=== PATIENT | male | born 1940 | race Caucasian/White ===

== ENCOUNTER 2016-12-29 12:04 | Inpatient (IN) | payer OTHER ==
[~2016-12-29] VITALS: Ht 177.8 cm; Wt 99.8 kg
--- NOTE | 2016-12-29 12:13 | NUR ---
RECIEVED TO ROOM 19. HAL RIVERO AT BEDSIDE TRIAGING PT. PT ON MONITOR
--- NOTE | 2016-12-29 12:15 | NUR ---
PT SENT TO ED BY PRIMARY CARE PROVIDER IN COLLABORATION WITH DR. SCALES FOR R/O HEART BLOCK PT'S HEART RATE WAS LOW IN THE OFFICE THIS MORNING AND HE WAS SENT IN. PT OFFERS NO COMPLAINTS EXCEPT OCCASIONAL SOB. DOES HAVE BACK PAIN, NECK PAIN AND GROIN PAIN OVER THE LAST COUPLE OF DAYS. NORMAL COLORING NOTED. PT BROUGHT IMMEDIATELY TO ROOM 19.
[2016-12-29] MEDS ORDERED: AMLODIPINE BESYL5 M1 PO (12:26)
[2016-12-29] MEDS ORDERED: ASPIRIN81 M4 PO (12:26)
--- NOTE | 2016-12-29 12:26 | NUR ---
PT IN SECOND DEGREE HEART BLOCK WITH RATE LOW 36 AND UP TO 60. PT ASYMPTOMATIC WITH THIS RATE. EXTERNAL PACEMAKER AT BEDSIDE AND READY FOR USE IF NEEDED. AT BEDSIDE. 20 GUAGE IV PLACED IN RAC BY MELODY RIVERO. LABS DRAWN
[2016-12-29] MEDS ORDERED: [UNRECOGNIZED DRUG - OTHER] PO (12:27)
[2016-12-29] MEDS ORDERED: CO Q-10100 MG PO (12:28)
[2016-12-29] MEDS ORDERED: VITAMIN D35000 UNI1 PO (12:28)
--- NOTE | 2016-12-29 12:31 | ED CARDIAC/CP/PALPITATIONS ---
History of Present Illness General Chief Complaint: ??heart block Stated Complaint: SENT BY ; SLOW HEART RATE Source: patient Exam Limitations: no limitations Vital Signs & Intake/Output Vital Signs & Intake/Output Vital Signs Date Time Temp Pulse Resp B/P B/P Pulse O2 O2 Flow FiO2 Mean Ox Delivery Rate 12/29 2116 98.0 40 20 130/64 96 Room Air 12/30 2007 96.8 32 18 130/70 96 Room Air 12/29 1714 36 18 109/54 94 Room Air 12/29 1658 98.3 35 18 120/58 97 Room Air 12/29 1423 37.0 40 18 136/70 97 Room Air 12/29 1247 Room Air 12/29 1213 37 20 161/70 96 Room Air Room Air Allergies Coded Allergies: No Known Allergies (12/29/16) Triage Note: PT SENT TO ED BY PRIMARY CARE PROVIDER IN COLLABORATION WITH DR. ROWLAND FOR R/O HEART BLOCK PT'S HEART RATE WAS LOW IN THE OFFICE THIS MORNING AND HE WAS SENT IN. PT OFFERS NO COMPLAINTS EXCEPT OCCASIONAL SOB. DOES HAVE BACK PAIN, NECK PAIN AND GROIN PAIN OVER THE LAST COUPLE OF DAYS. NORMAL COLORING NOTED. PT BROUGHT IMMEDIATELY TO ROOM 19. Triage Nurses Notes Reviewed? yes HPI: patient is a 76 YO M with pmh of prostate cancer, HTN came to the ER after being sent by for concern of heart block in the setting of asymptomatic bradycardia. Apparently patient underwent a skin biopsy 3 weeks ago (12/03/2016) , by Dr. Morales. After biopsy took a course of cephalexin. His results came back showing taken his skin biopsy. He was asked to come to office today for follow-up of his results, he was found to be asymptomatically bradycardic. Hazel Figueredo MD communicated with Dr. Rowland his actuarial science teacher, sent to ER as per his recommendation. After coming to the ER he is completely asymptomatic, denies any dizziness/lightheadedness/syncope episodes. He reports significant fatigue for the past few days, back pain, neck pain, right hip pain without any fevers/chills. He also found to have occasional exertional dyspnea with lightheadedness for the past 3 months. He snores, feels sleppy during day time. Quit smoking 40 years ago, denies any alcohol/drugs Surgical history significant for right inguinal hernial repair, multiple orthopedic surgeries to right forearm. (KASSI SHEFFIELD MD) Reconcile Medications Amlodipine Besylate 5 MG TABLET 1 TAB PO DAILY HEART (Reported) Aspirin (Aspirin*) 81 MG TAB.CHEW 1 TAB PO DAILY HEART HEALTH (Reported) Cholecalciferol (Vitamin D3) (Vitamin D3) 5,000 UNIT TABLET 1 TAB PO DAILY VITAMIN SUPPORT (Reported) [CHOLESTAFF] 900 MG TAB 1 TAB PO DAILY CHOLESTEROL (Reported) Ubidecarenone (Co Q-10) 100 MG CAPSULE 1 CAP PO QPM SUPPLEMENT (Reported) (JACK NGO MD) Past History Travel History Traveled to [place] past 21 day No Medical History Any Pertinent Medical History? 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 Yes (KASSI SHEFFIELD MD) Review of Systems Review of Systems Constitutional: Reports: see HPI, malaise. EENTM: Reports: no symptoms. Respiratory: Reports: no symptoms. Cardiovascular: Reports: no symptoms. GI: Reports: no symptoms. Genitourinary: Reports: no symptoms. Musculoskeletal: Reports: no symptoms. (KASSI SHEFFIELD MD) Physical Exam Physical Exam General Appearance: well developed/nourished, alert, awake, anxious Head: atraumatic, normal appearance Eyes: Bilateral: normal appearance, PERRL, EOMI. Ears, Nose, Throat: normal pharynx Neck: normal inspection, supple Respiratory: normal breath sounds, chest non-tender Cardiovascular: bradycardic, s1, s2 normal Gastrointestinal: normal bowel sounds, non-tender, distention Skin: intact, normal color, NO rash, mojica hemangiomas through out Core Measures ACS in differential dx? No Severe Sepsis Present: No Septic Shock Present: No (KASSI SHEFFIELD MD) Progress Differential Diagnosis: heart block, bradycardia, Lyme carditis Plan of Care: Orders Procedure Date/time Status CBC WITHOUT DIFFERENTIAL 06/13 0600 Active BASIC ELECTROLYTES PLUS BUN&CR 12/30 0600 Active Heart Healthy Diet 12/29 D Active EKG 12/30 1999 Active Pathway - chart 12/29 1547 Active House Staff 12/29 1547 Active Patient Data 12/29 1547 Active ED Holding Orders 12/29 1455 Active Admit to inpatient 12/29 1455 Active Vital Signs 12/29 1455 Active Code Status 12/29 1455 Active Patient Data 12/29 1430 Active Add-on Test (ER Only) 12/29 1347 Active Intake & Output 12/29 1247 Active BLOOD CULTURE 12/29 1238 Active MISTAKE 12/29 1225 Active TROPONIN LEVEL 12/29 1225 Complete Add-on Test (ER Only) 12/29 1220 Active Telemetry/Sheep Or Calf Grader 12/29 1219 Active PARTIAL THROMBOPLASTIN TIME 12/29 1219 Complete PROTHROMBIN TIME 12/29 1219 Complete LYME TITRE 12/29 1219 Active COMPREHENSIVE METABOLIC PANEL 12/29 1219 Complete CBC WITHOUT DIFFERENTIAL 12/29 1219 Complete TYPE & SCREEN (NOT X-MATCH) 12/29 1219 Complete EKG 12/29 1205 Active VTE Mechanical Prophylaxis 12/29 UNK Active Telemetry/Sheep Or Calf Grader 12/29 UNK Active Current Medications Sig/Primo Start time Last Medication Dose Stop Time Status Admin Aspirin 81 MG DAILY 12/30 1000 AC (Aspirin) Enoxaparin Sodium 40 MG DAILY 12/30 1000 AC (Lovenox) Ceftriaxone Sodium 2,000 MG DAILY@1600 12/29 1600 AC 12/29 (Rocephin) 1633 Acetaminophen 650 MG Q6P PRN 12/29 1545 AC (Tylenol) Acetaminophen 1,000 MG Q6P PRN 12/29 1545 AC (Ofirmev) Morphine Sulfate 1 MG Q4P PRN 12/29 1545 AC (Morphine) Laboratory Tests 12/29/16 1547: Sodium Cancelled, Potassium Cancelled, Chloride Cancelled, Carbon Dioxide Cancelled, Anion Gap Cancelled, BUN Cancelled, Creatinine Cancelled, BUN/ Creatinine Ratio Cancelled, CBC w Diff Cancelled, WBC Cancelled, RBC Cancelled, Hgb Cancelled, Hct Cancelled, MCV Cancelled, MCH Cancelled, RDW Cancelled, Plt Count Cancelled, MPV Cancelled, PUBS MCHC Cancelled 12/29/16 1225: Anion Gap 12, Estimated GFR > 60, BUN/Creatinine Ratio 14.5, Glucose 97, Calcium 9.8, Total Bilirubin 1.0, AST 35, ALT 54, Alkaline Phosphatase 105, Troponin I < 0.01, Total Protein 7.8, Albumin 4.4, Globulin 3.4, Albumin/Globulin Ratio 1.3, PT 11.6, INR 1.11, APTT 34, CBC w Diff NO MAN DIFF REQ, RBC 4.25 L, MCV 90.9, MCH 30.8, RDW 14.0, MPV 7.8, Gran % 61.7, Lymphocytes % 24.4, Monocytes % 9.6 H , Eosinophils % 3.6, Basophils % 0.7, Absolute Granulocytes 4.1, Absolute Lymphocytes 1.6, Absolute Monocytes 0.6, Absolute Eosinophils 0.2, Absolute Basophils 0, PUBS MCHC 33.8, Lyme Disease Antibody Pending Microbiology 12/29 1300 BLOOD: Blood Culture - RECD 12/29 1247 BLOOD: Blood Culture - RECD CXR Impression: no acute abnormality Initial ED EKG: HR 37, NC 268, first degree heart block, Anterior Q waves V1, V2 , QTc 471. Rhythm Strip: sinus bradycardia Hand-Off Endorsed To: JACK NGO MD (KASSI SHEFFIELD MD) Departure Departure Condition: Stable Referrals: JAMAL FIGUEREDO MD (PCP/Family) Departure Forms: Customer Survey General Discharge Information Admission Note Spoke With: JOSE DANIEL CORTEZ,CHARY Chao Documentation of Exam: Documentation of any treatments & extenuating circumstances including Concerns Regarding Discharge (functional status, medication knowledge or non-compliance, living conditions, etc.) that warrant an admission rather than observation: [ Telemetry monitoring, asymtomatic bradycardia with occasinal drop down to 30's with 2:1 Heart block] (KASSI SHEFFIELD MD) Departure Disposition: STILL A PATIENT Clinical Impression Primary Impression: Lyme carditis Secondary Impressions: Bradycardia, Lyme disease Admission Note Documentation of Exam: Documentation of any treatments & extenuating circumstances including Concerns Regarding Discharge (functional status, medication knowledge or non-compliance, living conditions, etc.) that warrant an admission rather than observation: [ WILL REQUIRE CARDIOLOGY CONSULTATION, INFECTIOUS DISEASE CONSULTATION, IV ABX, PACER PADS, NO INDICATION FO RPACING AT THIS TIME PATIENT IS MINIMALISTIC SYMPTOMATIC] PA/DEPUTY SHERIFF CHIEF Co-Sign Statement Statement: ED Attending supervision documentation- [] I saw and evaluated the patient. I have also reviewed all the pertinent lab results and diagnostic results. I agree with the findings and the plan of care as documented in the PA's/DEPUTY SHERIFF CHIEF's documentation. [] I have reviewed the ED Record and agree with the PA's/DEPUTY SHERIFF CHIEF's documentation. [] Additions or exceptions (if any) to the PAs/DEPUTY SHERIFF CHIEF's note and plan are summarized below: [] Resident Co-Sign Statement Statement: ED Attending supervision documentation- [X] I saw and evaluated the patient. I have also reviewed all the pertinent lab results and diagnostic results. I agree with the findings and the plan of care as documented in the Resident's documentation. [X] I have reviewed the ED Record and agree with the Resident's documentation. [] Additions or exceptions (if any) to the Resident's note and plan are summarized below: [] (JENI CORTEZ,JACK) Critical Care Note Critical Care Note Critical Care Time: non-applicable (NETTIE CORTEZ,KASSI)
--- NOTE | 2016-12-29 12:35 | NUR ---
DR NGO IN TO SEE PT
--- NOTE | 2016-12-29 12:45 | NUR ---
PT WITH VARIABLE HEART RHYTHM. PT GOES BACK AND FORTH BETWEEN NSR, SINUS KATHERINE AND SECOND DEGREE TYPE 2 HEART BLOCK
--- NOTE | 2016-12-29 12:46 | RADIOLOGY REPORT ---
EXAMINATION: XR PORTABLE CHEST CLINICAL INFORMATION: Bradycardia COMPARISON: 04/06/2015 TECHNIQUE: Portable frontal view of the chest was obtained. FINDINGS: No focal consolidation, pulmonary edema, or pleural effusion. Stable cardiomediastinal silhouette. IMPRESSION: No acute cardiopulmonary findings.
--- NOTE | 2016-12-29 12:46 | NUR ---
TWO SETS OF BLOOD CULTURES BEING DRAWN
[2016-12-29 12:48] LABS: ABSOLUTE BASOPHIL COUNT 0 /CUMM (0.0-0.2); ABSOLUTE EOSINOPHIL COUNT 0.2 /CUMM (0.0-0.7); ABSOLUTE GRANULOCYTE CT 4.1 /CUMM (1.4-6.5); ABSOLUTE LYMPH COUNT 1.6 /CUMM (1.2-3.4); ABSOLUTE MONOCYTE COUNT 0.6 /CUMM (0.10-0.60); BASOPHIL % 0.7 % (0.0-2.0); EOSINOPHIL % 3.6 % (0-5); GRANULOCYTE % 61.7 % (42.2-75.2); HEMATOCRIT 38.7 % (42-52); MEAN CORPUSCULAR HGB 30.8 PG (27.0-31.0); MEAN CORPUSCULAR HGB CONC 33.8 G/DL (33.0-37.0); MEAN CORPUSCULAR VOLUME 90.9 FL (80.0-94.0); MEAN PLATELET VOLUME 7.8 FL (7.4-10.4); PLATELET COUNT 202 /CUMM (130-400); RED BLOOD CELL CT 4.25 /CUMM (4.70-6.10); WHITE BLOOD CELL COUNT 6.6 /CUMM (4.8-10.8)
[2016-12-29 13:09] LABS: PT 11.6 SEC (9.4-12.5); PTT 34 SEC (25-37)
--- NOTE | 2016-12-29 14:24 | NUR ---
PT RECIEVING VIBRAMYSIN. ORTHOSTATIC BLOOD PRESSURES TAKEN. PT DENIES DIZZINESS WHEN UP. SKIN WARM AND DRY
--- NOTE | 2016-12-29 14:45 | History & Physical ---
SUBHASH THOMPSON MD 12/29/16 1445: General Information and HPI MD Statement: I have seen and personally examined ANASTACIA RECIO and documented this H&P. The patient is a 76 year old M who presented with a patient stated chief complaint of []. Source of Information: patient, family Exam Limitations: no limitations History of Present Illness: Patient is a 76-year-old man with significant past medical history of prostate cancer s/p surgery, radiotherapy, hypertension, sent by urologist to [facility] as found to have bradycardia. According to the patient, since last 1 month he had episodes of fatigue, generalized weakness for which he usually take nape and recovers after it. He was also having history of skin tag at the site of scrotal lesion for which biopsy was done and which showed fragments of tick. Today when he went to follow -up with Dr. Morales, he found to have bradycardia. Dr. Morales discussed with Dr. Francisco over the phone and advised for the patient to follow-up in [facility] ED for further evaluation. EKG was done over here which showed prolonged CA and first-degree block. Discussed with Dr Vila and he advised for starting patient on IV antibiotic. Patient denies of any chest pain, shortness of breath, dizziness, fall., Fever, chills. He also claims that he started having pain on the right hip since couple of days. Personal history -denies smoking, alcohol, recent travel. Allergies/Medications Allergies: Coded Allergies: No Known Allergies (12/29/16) Home Med list Amlodipine Besylate 5 MG TABLET 1 TAB PO DAILY HEART (Reported) Aspirin (Aspirin*) 81 MG TAB.CHEW 1 TAB PO DAILY HEART HEALTH (Reported) Cholecalciferol (Vitamin D3) (Vitamin D3) 5,000 UNIT TABLET 1 TAB PO DAILY VITAMIN SUPPORT (Reported) [CHOLESTAFF] 900 MG TAB 1 TAB PO DAILY CHOLESTEROL (Reported) Ubidecarenone (Co Q-10) 100 MG CAPSULE 1 CAP PO QPM SUPPLEMENT (Reported) Past History Travel History Traveled to [place] past 21 day No Medical History Neurological: NONE EENT: NONE Cardiovascular: hyperlipidemia, htn Respiratory: NONE Gastrointestinal: NONE Hepatic: NONE Renal: NONE Musculoskeletal: NONE Psychiatric: anxiety Endocrine: NONE Blood Disorders: NONE 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 Cardiovascular: Denies: chest pain. Respiratory: Denies: cough, short of breath. Musculoskeletal: Reports: back pain, neck pain. Skin: Denies: no symptoms. Neurological/Psychological: Denies: no symptoms. Exam & Diagnostic Data Last 24 Hrs of Vital Signs/I&O Vital Signs Date Time Temp Pulse Resp B/P B/P Pulse O2 O2 Flow FiO2 Mean Ox Delivery Rate 12/30 2007 96.8 32 18 130/70 96 Room Air 12/29 1714 36 18 109/54 94 Room Air 12/29 1658 98.3 35 18 120/58 97 Room Air 12/29 1423 37.0 40 18 136/70 97 Room Air 12/29 1247 Room Air 12/29 1213 37 20 161/70 96 Room Air Room Air Intake & Output 12/29 1600 12/29 0800 12/29 0000 Intake Total Output Total Balance Patient 99.79 kg Weight Weight Reported by Patient Measurement Method Physical Exam General Appearance Alert, Oriented X3, Cooperative, No Acute Distress Cardiovascular Normal S1, Normal S2 Lungs Clear to Auscultation, Normal Air Movement Abdomen Soft, No Tenderness Neurological Normal Speech Extremities No Clubbing, No Cyanosis, No Edema Vascular Normal Pulses, Pulses Symmetrical Reproductive (MALE) Normal male genitalia Last 24 Hrs of Labs/Aubrey: Laboratory Tests 12/29/16 1547: Sodium Cancelled, Potassium Cancelled, Chloride Cancelled, Carbon Dioxide Cancelled, Anion Gap Cancelled, BUN Cancelled, Creatinine Cancelled, BUN/ Creatinine Ratio Cancelled, CBC w Diff Cancelled, WBC Cancelled, RBC Cancelled, Hgb Cancelled, Hct Cancelled, MCV Cancelled, MCH Cancelled, RDW Cancelled, Plt Count Cancelled, MPV Cancelled, PUBS MCHC Cancelled 12/29/16 1225: Anion Gap 12, Estimated GFR > 60, BUN/Creatinine Ratio 14.5, Glucose 97, Calcium 9.8, Total Bilirubin 1.0, AST 35, ALT 54, Alkaline Phosphatase 105, Troponin I < 0.01, Total Protein 7.8, Albumin 4.4, Globulin 3.4, Albumin/Globulin Ratio 1.3, PT 11.6, INR 1.11, APTT 34, CBC w Diff NO MAN DIFF REQ, RBC 4.25 L, MCV 90.9, MCH 30.8, RDW 14.0, MPV 7.8, Gran % 61.7, Lymphocytes % 24.4, Monocytes % 9.6 H , Eosinophils % 3.6, Basophils % 0.7, Absolute Granulocytes 4.1, Absolute Lymphocytes 1.6, Absolute Monocytes 0.6, Absolute Eosinophils 0.2, Absolute Basophils 0, PUBS MCHC 33.8, Lyme Disease Antibody Pending Microbiology 12/29 1300 BLOOD: Blood Culture - RECD 12/29 1247 BLOOD: Blood Culture - RECD Diagnostic Data EKG Results Sinus bradycardia, first-degree heart block, prolonged CA interval, 1:1 block Assessment/Plan Assessment: Patient is a 76-year-old man with significant past medical history of prostate cancer s/p surgery, radiotherapy, hypertension, sent by urologist to [facility] as found to have bradycardia. Vital signs at the time of admission-temperature 98.3, pulse 37, respiratory rate 20, blood pressure 161/70, SPO2 96% on room air Pertinent labs - hemoglobin 13.1, Assessment and plan - Patient presented with the history of episodes of fatigue, generalized weakness and found to have fragments of tick, in skin tags. It seems that it can be related. Possible bradycardia secondary to tick bite. Although he denies of any episodes of skin rashes, joint pain. First-degree heart block secondary to tick - * We will admit the patient to telemetry floor * We will mesure Lyme titer * Discussed with Dr. Vila will start patient on injection ceftriaxone 2 grams IV OD, followed by tablet doxycycline 100 milligrams twice a day for 2-3 weeks * We'll keep atropine/pacer pads at the bedside. * We will follow ID recommendations * We will place a cardiology consult and followed the recommendation * Vitals every shift * We will repeat EKG in the morning Hypertension * We will hold amlodipine for a while. Diet-heart healthy diet DVT prophylaxis-ALP/heparin CODE STATUS - Full Code As Ranked By This Provider Problem List: 1. Bradycardia 2. Lyme disease 3. Hypertension Core Measures/Miscellaneous Acute Coronary Syndrome ACS Diagnosis: No Cerebrovascular Accident CVA/TIA Diagnosis: No Congestive Heart Failure CHF Diagnosis: No VTE (View Protocol) VTE Risk Factors: Age > 40 [facility] d/t: No contraindications No VTE Pharm Prophylaxis d/t: No contraindications VTE Diagnosis: No VTE Type: NONE VTE Confirmed by (Test): NONE Sepsis (View Protocol) Severe Sepsis Present: No Septic Shock Septic Shock Present: No Miscellaneous Documentation Attending Case Discussed With: JOSE DANIEL CORTEZ,CHARY Chao Primary Care Physician: JAMAL FIGUEREDO MD Patient sees these Specialists Dr. Morales Level of Patient Care: Telemetry RENA GALVEZ 12/29/16 1636: Resident Review Statement Resident Statement: examined this patient, discussed with general internist, agreed with general internist Other Findings: Patient is a 76-year-old gentleman with a past medical history significant for hypertension, prostate cancer status post removal and radio ablation by his neurologist Dr. Morales was sent in by his primary care physician with concerns of bradycardia. Patient mentioned that he developed skin tag in the scrotal region that was resected at Dr. Morales's office about 3-4 weeks ago, biopsy was done that showed tissue fragments with possibility of attached organism with features consistent with a tick. Dr. Morales informed the patient with the results as per recommendations he was seen at his primary care physician's office today. His office he was found to be in bradycardia although totally asymptomatic EKG was done, and was faxed in to Dr. 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 In the ER patient denied any chest discomfort or breathing or any palpitations. Denied any dizziness or lightheadedness. He did report some nonspecific neck and back, and right-sided hip pain for the last couple of days without any evidence of joint involvement/rash. Denies any fever or chills. Initial vitals in the ED showed Pulse 37 with a blood pressure 161/70, normal temperature his rate 20 saturating more than 92% on room air General Appearance: Alert, No Acute Distress Skin: Grossly normal HEENT: PEERLA Neck: Supple, No JVD Cardiovascular: Irregularly irregular rate and rhythm, No Murmurs Lungs: Clear to Auscultation, Normal Air Movement Abdomen: Normal Bowel Sounds, Soft, No Tenderness Neurological: Normal Speech, Strength at 5/5 X4 Ext, Cranial Nerves 3-12 NL, Reflexes 2+ Extremities: No edema in the lower activities. Vascular: Normal Pulses . Pertinent labs on admission: H&H is stable, normal BEP Chest x-ray did not show any evidence of cardiopulmonary disease EKG done in the ED showed sinus bradycardia ,heart rate in 30s with Mobitz type II second-degree AV block , CA prolonged 268. Assessment : This this is a 76-year-old admitted with asignificant past medical history except for hypertension presented to the ED for the evaluation of asymptomatic bradycardia and Mobitz type II second-degree A-V heart block with concerns of Lyme's disease(evidence of tick in the recent skin biopsy). Asymptomatic bradycardia with with Mobitz type II second-degree AV block, probably in the setting of Lyme's disease * We'll admit the patient to telemetry floor * Lyme's titer have been sent in. * She already received 1 time dose of IV doxycycline in the ED. ID consult with Dr. Vila has been obtained as per recommendations we'll start the patient on IV ceftriaxone 2 g daily now. * We repeat EKG in the evening. * Cardiology consult with Madi Fitzgerald MD has been obtained we'll follow the recommendations. * Order echocardiogram * Hold Norvasc for now continue with aspirin from tomorrow. * Will change the antibiotic to doxycycline and by mouth 200 mg twice a day on discharge for a total of 2-3 weeks. History of hypertension * Continue aspirin and hold Norvasc for now. DVT prophylaxis with subcutaneous Lovenox Mild to moderate pain controlled with Tylenol Patient is full code
--- NOTE | 2016-12-29 15:34 | Cons- Infect Disease ---
General Information and HPI Consulting Request Date of Consult: 12/29/16 Requested By: Dr. Jasso Reason for Consult: Rule out Lyme carditis Source of Information: patient, family History of Present Illness: This is a 76-year-old man with a history of hypertension and prostate cancer, status post removal by his urologist of what he felt was a skin tag from his scrotum several weeks prior to admission, with the biopsy revealing evidence of a tick and referred to his primary care physician this morning who referred him to the emergency room because of bradycardia. He reports no lightheadedness, shortness of breath or chest pain. He does note neck pain, back pain and right hip pain over the last several days but has had no fevers or chills and has not noted any rash. On arrival in the emergency room he was found to be afebrile and bradycardic, with his heart rate down to 36. He has been given a dose of IV Doxycycline. Allergies/Medications Allergies: Coded Allergies: No Known Allergies (12/29/16) Home Med List: Amlodipine Besylate 5 MG TABLET 1 TAB PO DAILY HEART (Reported) Aspirin (Aspirin*) 81 MG TAB.CHEW 1 TAB PO DAILY HEART HEALTH (Reported) Cholecalciferol (Vitamin D3) (Vitamin D3) 5,000 UNIT TABLET 1 TAB PO DAILY VITAMIN SUPPORT (Reported) [CHOLESTAFF] 900 MG TAB 1 TAB PO DAILY CHOLESTEROL (Reported) Ubidecarenone (Co Q-10) 100 MG CAPSULE 1 CAP PO QPM SUPPLEMENT (Reported) Past History Travel History Traveled to [place] past 21 day No Medical History Neurological: NONE EENT: NONE Cardiovascular: hyperlipidemia, htn Respiratory: NONE Gastrointestinal: NONE Hepatic: NONE Renal: NONE Musculoskeletal: NONE Psychiatric: anxiety Endocrine: NONE Blood Disorders: NONE Cancer(s): prostate cancer (s/p radiation implant) 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 Surgical History Surgical History: none Review of Systems Review of Systems All Other Systems: Reviewed and Negative Exam & Diagnostic Data Last 24 Hrs of Vital Signs/I&O Vital Signs Date Time Temp Pulse Resp B/P B/P Pulse O2 O2 Flow FiO2 Mean Ox Delivery Rate 12/29 1423 37.0 40 18 136/70 97 Room Air 12/29 1247 Room Air 12/29 1213 37 20 161/70 96 Room Air Room Air Intake & Output 12/29 1600 12/29 0800 12/29 0000 Intake Total Output Total Balance Patient 220 lb Weight Weight Reported by Patient Measurement Method Physical Exam Other Physical Findings: He is awake and alert in no acute distress. He is afebrile. He is bradycardic with a heart rate down to 37. Blood pressure 161/70. Skin reveals no rash. HEENT exam is negative. Neck is supple with no adenopathy. Lungs are clear. Heart regular rhythm with no murmur. Abdomen is soft, nontender with positive bowel sounds. Back no CVA tenderness. Extremities no cyanosis, clubbing or edema; no joint inflammation. Neuro is without focality. Last 24 Hours of Lab Results: Laboratory Tests 12/29 1225 Chemistry Sodium (137 - 145 mmol/L) 137 Potassium (3.5 - 5.1 mmol/L) 4.6 Chloride (98 - 107 mmol/L) 103 Carbon Dioxide (22 - 30 mmol/L) 22 Anion Gap (5 - 16) 12 BUN (9 - 20 mg/dL) 16 Creatinine (0.7 - 1.2 mg/dL) 1.1 Estimated GFR (>60 ml/min) > 60 BUN/Creatinine Ratio (7 - 25 %) 14.5 Glucose (65 - 99 mg/dL) 97 Calcium (8.4 - 10.2 mg/dL) 9.8 Total Bilirubin (0.2 - 1.3 mg/dL) 1.0 AST (17 - 59 U/L) 35 ALT (21 - 72 U/L) 54 Alkaline Phosphatase (< 127 U/L) 105 Troponin I (<0.11 ng/ml) < 0.01 Total Protein (6.3 - 8.2 g/dL) 7.8 Albumin (3.5 - 5.0 g/dL) 4.4 Globulin (1.9 - 4.2 gm/dL) 3.4 Albumin/Globulin Ratio (1.1 - 2.2 %) 1.3 Coagulation PT (9.4 - 12.5 SEC) 11.6 INR (0.90 - 1.17) 1.11 APTT (25 - 37 SEC) 34 Hematology CBC w Diff NO MAN DIFF REQ WBC (4.8 - 10.8 /CUMM) 6.6 RBC (4.70 - 6.10 /CUMM) 4.25 L Hgb (14.0 - 18.0 G/DL) 13.1 L Hct (42 - 52 %) 38.7 L MCV (80.0 - 94.0 FL) 90.9 MCH (27.0 - 31.0 PG) 30.8 RDW (11.5 - 14.5 %) 14.0 Plt Count (130 - 400 /CUMM) 202 MPV (7.4 - 10.4 FL) 7.8 Gran % (42.2 - 75.2 %) 61.7 Lymphocytes % (20.5 - 51.1 %) 24.4 Monocytes % (1.7 - 9.3 %) 9.6 H Eosinophils % (0 - 5 %) 3.6 Basophils % (0.0 - 2.0 %) 0.7 Absolute Granulocytes (1.4 - 6.5 /CUMM) 4.1 Absolute Lymphocytes (1.2 - 3.4 /CUMM) 1.6 Absolute Monocytes (0.10 - 0.60 /CUMM) 0.6 Absolute Eosinophils (0.0 - 0.7 /CUMM) 0.2 Absolute Basophils (0.0 - 0.2 /CUMM) 0 PUBS MCHC (33.0 - 37.0 G/DL) 33.8 Serology Lyme Disease Antibody Pending Last 24 Hours of Aubrey Results: Blood cultures 2 December 29 pending Diagnostic Data Recent Imaging Findings: Chest x-ray negative EKG reveals bradycardia with a first-degree heart block with a ME interval of 0.268 Assessment/Plan Assessment/Plan Impression: This is a 76-year-old man with history of prostate cancer and hypertension status post removal of what he felt was a skin tag several weeks prior to admission, with a biopsy revealing evidence of a tick, admitted today after he was found to be bradycardic at his physician's office with no lightheadedness, chest pain or shortness of breath but with several days of arthralgias. 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 Treatment requires a 2-3 week course of antibiotics, typically Doxycycline for lower degrees of heart block and Ceftriaxone for higher degrees. As he is being admitted and the heart block can fluctuate it is reasonable to treat with Ceftriaxone while he is hospitalized. Suggestion: 1. Await Lyme titer 2. Await Cardiology evaluation 3. Begin Ceftriaxone 2 g IV every 24 hours, with eventual change to Doxycycline 100 mg po every 12 hours when stable for discharge to complete a 2-3 week course of treatment Consult Acknowledgment - Thank you for your consult request.
--- NOTE | 2016-12-29 16:15 | NUR ---
HOSPITAL MD TEAM IN TO SEE PT
--- NOTE | 2016-12-29 16:57 | NUR ---
PT GIVEN ROCEPHIN. PT ATE DINNER. REMAINS ALERT AND ORIENTED. IN NO OVERT DISTRESS. SKIN WARM AND DRY. HEART RATE 36. SECOND DEGREE TYPE 2 BLOCK
--- NOTE | 2016-12-29 17:12 | Admission Certification ---
Admission Certification Certification Statement - As attending physician, I certify that at the time of - admission, based on clinical presentation, severity of - symptoms, need for further diagnostic testing and - therapeutic interventions, and risk of adverse outcomes - without in-hospital treatment, in my clinical assessment, - this patient requires an acute hospital stay for a minimum - of two nights or longer. I have also considered psychsocial - factors such as support system, advanced age, financial - issues, cognitive issues, and failed out-patient treatments, - past re-admission history, safety of patient, and lack of - compliance as applicable. Specific rationale supporting this admission is: heart block with bradycardia
--- NOTE | 2016-12-29 17:21 | PN- Att Addend ---
Attending MD Review Statement Attending Statement Attending MD Statement: examined this patient, discuss w/resident/PA/ARMAMENT MECHANIC, agreed w/resident/PA/ARMAMENT MECHANIC, reviewed EMR data (avail), discussed w/nursing Attending Assessment/Plan: Laboratory Tests 12/29/16 1547: Sodium Cancelled, Potassium Cancelled, Chloride Cancelled, Carbon Dioxide Cancelled, Anion Gap Cancelled, BUN Cancelled, Creatinine Cancelled, BUN/ Creatinine Ratio Cancelled, CBC w Diff Cancelled, WBC Cancelled, RBC Cancelled, Hgb Cancelled, Hct Cancelled, MCV Cancelled, MCH Cancelled, RDW Cancelled, Plt Count Cancelled, MPV Cancelled, PUBS MCHC Cancelled 12/29/16 1225: Anion Gap 12, Estimated GFR > 60, BUN/Creatinine Ratio 14.5, Glucose 97, Calcium 9.8, Total Bilirubin 1.0, AST 35, ALT 54, Alkaline Phosphatase 105, Troponin I < 0.01, Total Protein 7.8, Albumin 4.4, Globulin 3.4, Albumin/Globulin Ratio 1.3, PT 11.6, INR 1.11, APTT 34, CBC w Diff NO MAN DIFF REQ, RBC 4.25 L, MCV 90.9, MCH 30.8, RDW 14.0, MPV 7.8, Gran % 61.7, Lymphocytes % 24.4, Monocytes % 9.6 H , Eosinophils % 3.6, Basophils % 0.7, Absolute Granulocytes 4.1, Absolute Lymphocytes 1.6, Absolute Monocytes 0.6, Absolute Eosinophils 0.2, Absolute Basophils 0, PUBS MCHC 33.8, Lyme Disease Antibody Pending Vital Signs Date Time Temp Pulse Resp B/P B/P Pulse O2 O2 Flow FiO2 Mean Ox Delivery Rate 12/29 1658 98.3 35 18 120/58 97 Room Air 12/29 1423 37.0 40 18 136/70 97 Room Air 12/29 1247 Room Air 12/29 1213 37 20 161/70 96 Room Air Room Air 76 yr old male admitted with bradycardia and recent biopsy from scrotal skin tag showing tick remenants. Pt does do a lot of yardwork outside and gives h/o lot of deers passing by in his back yard. EKG showing ? 2nd degree type 2 block. Started on iv ceftriaxone per ID and we would monitor the pt on telemetry and repeat EKG in am. Will have cardiology see him .
--- NOTE | 2016-12-29 19:23 | NUR ---
PT GOING TO ROOM 187-1
[2016-12-29 21:17] VITALS: BP 130/64
[2016-12-30 01:13] VITALS: BP 126/60
[2016-12-30 08:11] VITALS: BP 120/70
--- NOTE | 2016-12-30 08:28 | PN- Housestaff ---
Subjective Follow-up For: bradiacardia due to 2nd degree heart block Complaints: no complaints Tele-Events Since Last Visit: epiosdes of bradycardia Subjective: pt is seen and examined at the bed side. He does not have any active complaints. He denies any dizziness, blurry vision, fall, seizures episodes. Review of Systems Constitutional: Reports: no symptoms. Objective Last 24 Hrs of Vital Signs/I&O Vital Signs Date Time Temp Pulse Resp B/P B/P Pulse O2 O2 Flow FiO2 Mean Ox Delivery Rate 12/30 0811 97.5 34 20 120/70 96 Room Air 12/30 0800 Room Air 12/30 0113 98.0 54 20 126/60 97 Room Air 12/29 2117 98.0 40 20 130/64 96 Room Air 12/30 2007 96.8 32 18 130/70 96 Room Air 12/29 1714 36 18 109/54 94 Room Air 12/29 1658 98.3 35 18 120/58 97 Room Air 12/29 1423 37.0 40 18 136/70 97 Room Air 12/29 1247 Room Air Intake & Output 12/30 1600 12/30 0800 12/30 0000 Intake Total 400 Output Total Balance 400 Intake, Oral 400 Patient 99.79 kg Weight Weight Reported by Patient Measurement Method Physical Exam General Appearance: Alert, Oriented X3, Cooperative, No Acute Distress Cardiovascular: Normal S1, Normal S2 Lungs: Clear to Auscultation, Normal Air Movement Abdomen: Soft, No Tenderness Neurological: Normal Speech Extremities: No Clubbing, No Cyanosis, No Edema Vascular: Normal Pulses, Pulses Symmetrical Assessment/Plan Assessment: Patient is a 76-year-old man with significant past medical history of prostate cancer s/p surgery, radiotherapy, hypertension, sent by urologist to [facility] as found to have bradycardia. Vital signs at the time of admission-temperature 98.3, pulse 47, respiratory rate 20, blood pressure 124/72, SPO2 96% on room air Pertinent labs - hemoglobin 13.1, Assessment and plan - Patient presented with the history of episodes of fatigue, generalized weakness and found to have fragments of tick, in skin tags. It seems that it can be related. Possible bradycardia secondary to tick bite. Although he denies of any episodes of skin rashes, joint pain. First-degree heart block secondary to tick - * Lyme titer -0.40, negative, we willrepeat it in 2 weeks. * Discussed with Dr. Vila we will continue patient on injection ceftriaxone 2 grams IV OD x 2 -3 days depends on response, followed by tablet doxycycline 100 milligrams twice a day for 2-3 weeks * Today EKG showed - second degres type 2 heart block, and PA intervel -0.268. * We will repeat EKG daily * We'll keep atropine/pacer pads at the bedside. * We will follow ID recommendations * We will follow cardiology rcms * Vitals every shift Hypertension * We will hold amlodipine for a while. Diet-heart healthy diet DVT prophylaxis-ALP/heparin CODE STATUS - Full Code Problem List: 1. Lyme carditis 2. Bradycardia 3. Hypertension Pain Ratin Pain Location: right hip Pain Goal: Remain pain free Pain Plan: mild to moderate Tomorrow's Labs & Rationales: ekg to see the recovery/progression of block DVT/Prophylaxis: mechanical, pharmacological
[2016-12-30 08:48] LABS: ABSOLUTE BASOPHIL COUNT 0 /CUMM (0.0-0.2); ABSOLUTE EOSINOPHIL COUNT 0.3 /CUMM (0.0-0.7); ABSOLUTE GRANULOCYTE CT 3.9 /CUMM (1.4-6.5); ABSOLUTE LYMPH COUNT 2.1 /CUMM (1.2-3.4); ABSOLUTE MONOCYTE COUNT 0.6 /CUMM (0.10-0.60); BASOPHIL % 0.6 % (0.0-2.0); EOSINOPHIL % 4.1 % (0-5); GRANULOCYTE % 55.5 % (42.2-75.2); HEMATOCRIT 38.8 % (42-52); MEAN CORPUSCULAR HGB 30.9 PG (27.0-31.0); MEAN CORPUSCULAR HGB CONC 33.8 G/DL (33.0-37.0); MEAN CORPUSCULAR VOLUME 91.2 FL (80.0-94.0); MEAN PLATELET VOLUME 8.2 FL (7.4-10.4); PLATELET COUNT 196 /CUMM (130-400); RBC DISTRIBUTION WIDTH 14.1 % (11.5-14.5); RED BLOOD CELL CT 4.26 /CUMM (4.70-6.10)
--- NOTE | 2016-12-30 09:49 | Cons- Cardiology ---
General Information and HPI Consulting Request Date of Consult: 12/30/16 Requested By: CHARY SKY MD Reason for Consult: Bradycardia Source of Information: patient, old records Exam Limitations: no limitations History of Present Illness: The patient is 76-year-old male with a history of hypertension and hyperlipidemia who was now found to be bradycardiac in Hazel Carpio MD's office. The patient states that he noted what he felt to be a possible skin tag on his scrotum approximately one month ago. Approximately 2 weeks ago he went to see Dr. Morales who removed it, sent out for evaluation, and was found to be remenents of a tick. Dr. Morales recommended that he see Hazel Carpio MD who found the patient to be bradycardiac with heart block and therefore was sent to the emergency room for evaluation and admission. From the cardiac standpoint he is asymptomatic specifically denying chest pain shortness of breath dizziness or syncope. He did not note any evidence of a rash, fever chills or excessive fatigue. Of note is the fact that the patient has not been seen sonce August 2015. He underwent a nuclear stress test in 2014 which demonstrated no evidence for ischemia and an echocardiogram at that same time demonstrating a normal LV function with minimal mitral and aortic insufficiency. He had been previously treated for his hypertension with lisinopril but developed shortness of breath therefore was discontinued and Hazel Carpio MD recently placed him on amlodipine. Allergies/Medications Allergies: Coded Allergies: No Known Allergies (12/29/16) Home Med List: Amlodipine Besylate 5 MG TABLET 1 TAB PO DAILY HEART (Reported) Aspirin (Aspirin*) 81 MG TAB.CHEW 1 TAB PO DAILY HEART HEALTH (Reported) Cholecalciferol (Vitamin D3) (Vitamin D3) 5,000 UNIT TABLET 1 TAB PO DAILY VITAMIN SUPPORT (Reported) [CHOLESTAFF] 900 MG TAB 1 TAB PO DAILY CHOLESTEROL (Reported) Ubidecarenone (Co Q-10) 100 MG CAPSULE 1 CAP PO QPM SUPPLEMENT (Reported) Current Medications: Current Medications Sig/Primo Start time Last Medication Dose Route Stop Time Status Admin Acetaminophen 650 MG Q6P PRN 12/29 1545 AC PO Acetaminophen 1,000 MG Q6P PRN 12/29 1545 AC IV Aspirin 81 MG DAILY 12/30 1000 AC PO Ceftriaxone Sodium 0 .STK-MED ONE 12/29 1618 DC .ROUTE Ceftriaxone Sodium 2,000 MG DAILY@1600 12/29 1600 AC 12/29 IV 1633 Doxycycline Hyclate 100 MG ONCE ONE 12/29 1245 DC 12/29 Sodium Chloride 100 ML IV 12/29 1350 1347 Enoxaparin Sodium 40 MG DAILY 12/30 1000 AC SC Morphine Sulfate 1 MG Q4P PRN 12/29 1545 AC IV Review of Systems Review of Systems: Eyes no blurred or double vision Ears no deafness or ringing Nose and throat no recurrent sinusitis Lungs per history of present illness Heart per history of present illness Abdomen no nausea vomiting Musculoskeletal occasional muscle and joint pains Psych no anxiety or depression Neuro without recurrent headache or seizures Endocrine no heat or cold intolerance Past History Travel History Traveled to [place] past 21 day No Medical History Neurological: NONE EENT: NONE Cardiovascular: hyperlipidemia, htn Respiratory: NONE Gastrointestinal: NONE Hepatic: NONE Renal: NONE Musculoskeletal: NONE Psychiatric: anxiety Endocrine: NONE Blood Disorders: NONE Cancer(s): prostate cancer (s/p radiation implant) 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 Home Services at Home: None Smoking Status: Former Smoker Exam & Diagnostic Data Vital Signs and I&O Vital Signs Date Time Temp Pulse Resp B/P B/P Pulse O2 O2 Flow FiO2 Mean Ox Delivery Rate 12/30 0811 97.5 34 20 120/70 96 Room Air 12/30 0800 Room Air 12/30 0113 98.0 54 20 126/60 97 Room Air 12/29 2117 98.0 40 20 130/64 96 Room Air 12/30 2007 96.8 32 18 130/70 96 Room Air 12/29 1714 36 18 109/54 94 Room Air 12/29 1658 98.3 35 18 120/58 97 Room Air 12/29 1423 37.0 40 18 136/70 97 Room Air 12/29 1247 Room Air 12/29 1213 37 20 161/70 96 Room Air Room Air Intake & Output 12/30 1600 12/30 0800 12/30 0000 12/29 1600 12/29 0800 12/29 0000 Intake Total 400 Output Total Balance 400 Intake, Oral 400 Patient 220 lb 220 lb Weight Weight Reported by Patient Reported by Patient Measurement Method Physical Exam: Patient is a well-developed well-nourished male appearing in no acute distress HEENT is unremarkable Neck is supple there is no JVD Lungs are clear Heart regular rhythm S1 and S2 are normal no gallops or rubs 2/6 systolic ejection murmur at the left sternal border Abdomen bowel sounds positive Extremities without edema Labs/Aubrey Results: Laboratory Tests 12/30 12/29 0637 1547 Chemistry Sodium (137 - 145 mmol/L) 141 Cancelled Potassium (3.5 - 5.1 mmol/L) 4.7 Cancelled Chloride (98 - 107 mmol/L) 104 Cancelled Carbon Dioxide (22 - 30 mmol/L) 26 Cancelled Anion Gap (5 - 16) 12 Cancelled BUN (9 - 20 mg/dL) 16 Cancelled Creatinine (0.7 - 1.2 mg/dL) 1.2 Cancelled Estimated GFR (>60 ml/min) 59 L BUN/Creatinine Ratio (7 - 25 %) 13.3 Cancelled Hematology CBC w Diff NO MAN DIFF REQ Cancelled WBC (4.8 - 10.8 /CUMM) 7.0 Cancelled RBC (4.70 - 6.10 /CUMM) 4.26 L Cancelled Hgb (14.0 - 18.0 G/DL) 13.1 L Cancelled Hct (42 - 52 %) 38.8 L Cancelled MCV (80.0 - 94.0 FL) 91.2 Cancelled MCH (27.0 - 31.0 PG) 30.9 Cancelled RDW (11.5 - 14.5 %) 14.1 Cancelled Plt Count (130 - 400 /CUMM) 196 Cancelled MPV (7.4 - 10.4 FL) 8.2 Cancelled Gran % (42.2 - 75.2 %) 55.5 Lymphocytes % (20.5 - 51.1 %) 30.8 Monocytes % (1.7 - 9.3 %) 9.0 Eosinophils % (0 - 5 %) 4.1 Basophils % (0.0 - 2.0 %) 0.6 Absolute Granulocytes (1.4 - 6.5 /CUMM) 3.9 Absolute Lymphocytes (1.2 - 3.4 /CUMM) 2.1 Absolute Monocytes (0.10 - 0.60 /CUMM) 0.6 Absolute Eosinophils (0.0 - 0.7 /CUMM) 0.3 Absolute Basophils (0.0 - 0.2 /CUMM) 0 PUBS MCHC (33.0 - 37.0 G/DL) 33.8 Cancelled 12/29 1225 Chemistry Sodium (137 - 145 mmol/L) 137 Potassium (3.5 - 5.1 mmol/L) 4.6 Chloride (98 - 107 mmol/L) 103 Carbon Dioxide (22 - 30 mmol/L) 22 Anion Gap (5 - 16) 12 BUN (9 - 20 mg/dL) 16 Creatinine (0.7 - 1.2 mg/dL) 1.1 Estimated GFR (>60 ml/min) > 60 BUN/Creatinine Ratio (7 - 25 %) 14.5 Glucose (65 - 99 mg/dL) 97 Calcium (8.4 - 10.2 mg/dL) 9.8 Total Bilirubin (0.2 - 1.3 mg/dL) 1.0 AST (17 - 59 U/L) 35 ALT (21 - 72 U/L) 54 Alkaline Phosphatase (< 127 U/L) 105 Troponin I (<0.11 ng/ml) < 0.01 Total Protein (6.3 - 8.2 g/dL) 7.8 Albumin (3.5 - 5.0 g/dL) 4.4 Globulin (1.9 - 4.2 gm/dL) 3.4 Albumin/Globulin Ratio (1.1 - 2.2 %) 1.3 Coagulation PT (9.4 - 12.5 SEC) 11.6 INR (0.90 - 1.17) 1.11 APTT (25 - 37 SEC) 34 Hematology CBC w Diff NO MAN DIFF REQ WBC (4.8 - 10.8 /CUMM) 6.6 RBC (4.70 - 6.10 /CUMM) 4.25 L Hgb (14.0 - 18.0 G/DL) 13.1 L Hct (42 - 52 %) 38.7 L MCV (80.0 - 94.0 FL) 90.9 MCH (27.0 - 31.0 PG) 30.8 RDW (11.5 - 14.5 %) 14.0 Plt Count (130 - 400 /CUMM) 202 MPV (7.4 - 10.4 FL) 7.8 Gran % (42.2 - 75.2 %) 61.7 Lymphocytes % (20.5 - 51.1 %) 24.4 Monocytes % (1.7 - 9.3 %) 9.6 H Eosinophils % (0 - 5 %) 3.6 Basophils % (0.0 - 2.0 %) 0.7 Absolute Granulocytes (1.4 - 6.5 /CUMM) 4.1 Absolute Lymphocytes (1.2 - 3.4 /CUMM) 1.6 Absolute Monocytes (0.10 - 0.60 /CUMM) 0.6 Absolute Eosinophils (0.0 - 0.7 /CUMM) 0.2 Absolute Basophils (0.0 - 0.2 /CUMM) 0 PUBS MCHC (33.0 - 37.0 G/DL) 33.8 Serology Lyme Disease Antibody Pending Diagnostic Data EKG Results Sinus bradycardia with second-degree AV block Mobitz type II nonspecific ST-T wave changes CXR Results IMPRESSION: No acute cardiopulmonary findings. Assessment/Plan Assessment/Plan 1. 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 He was noted to have remnants of a tic on biopsy of a scrotal lesion. 2. Essential hypertension 3. Hyperlipidemia 4. History of prostate cancer 5. Mild aortic insufficiency and mitral regurgitation by history Recommendations 1. Agree with holding amlodipine since his blood pressure is currently in normal 2. Continue to monitor on telemetry 3. Would obtain an echocardiogram to assess his LV function along with the etiology to his murmur 4. Continue ceftriaxone for presumed Lyme disease 5. Is currently no indication for a temporary pacemaker since he remains hemodynamically stable 6. Further recommendations regarding the timing of discharge and required follow-up will be made based upon the patient's clinical course. Thank you for allowing [facility] to participate in the care of your patient. Consult Acknowledgment - Thank you for your consult request.
--- NOTE | 2016-12-30 14:05 | PN- Infect Dx ---
Subjective Subjective: Afebrile. He complains of right hip pain but has no further neck or back pain. Objective Last 24 Hrs of Vital Signs/I&O Vital Signs Date Time Temp Pulse Resp B/P B/P Pulse O2 O2 Flow FiO2 Mean Ox Delivery Rate 12/30 0811 97.5 34 20 120/70 96 Room Air 12/30 0800 Room Air 12/30 0113 98.0 54 20 126/60 97 Room Air 12/29 2117 98.0 40 20 130/64 96 Room Air 12/30 2007 96.8 32 18 130/70 96 Room Air 12/29 1714 36 18 109/54 94 Room Air 12/29 1658 98.3 35 18 120/58 97 Room Air 12/29 1423 37.0 40 18 136/70 97 Room Air Intake & Output 12/30 1600 12/30 0800 12/30 0000 Intake Total 400 Output Total Balance 400 Intake, Oral 400 Patient 220 lb Weight Weight Reported by Patient Measurement Method Physical Exam Other Physical Findings: He appears comfortable in no acute distress Lungs are clear Heart slightly irregular rhythm with no murmur appreciated Extremities right hip tender to palpation laterally, with no overlying inflammation Results Last 24 Hours of Lab Results: Laboratory Tests 12/30 12/29 0637 1547 Chemistry Sodium (137 - 145 mmol/L) 141 Cancelled Potassium (3.5 - 5.1 mmol/L) 4.7 Cancelled Chloride (98 - 107 mmol/L) 104 Cancelled Carbon Dioxide (22 - 30 mmol/L) 26 Cancelled Anion Gap (5 - 16) 12 Cancelled BUN (9 - 20 mg/dL) 16 Cancelled Creatinine (0.7 - 1.2 mg/dL) 1.2 Cancelled Estimated GFR (>60 ml/min) 59 L BUN/Creatinine Ratio (7 - 25 %) 13.3 Cancelled Hematology CBC w Diff NO MAN DIFF REQ Cancelled WBC (4.8 - 10.8 /CUMM) 7.0 Cancelled RBC (4.70 - 6.10 /CUMM) 4.26 L Cancelled Hgb (14.0 - 18.0 G/DL) 13.1 L Cancelled Hct (42 - 52 %) 38.8 L Cancelled MCV (80.0 - 94.0 FL) 91.2 Cancelled MCH (27.0 - 31.0 PG) 30.9 Cancelled RDW (11.5 - 14.5 %) 14.1 Cancelled Plt Count (130 - 400 /CUMM) 196 Cancelled MPV (7.4 - 10.4 FL) 8.2 Cancelled Gran % (42.2 - 75.2 %) 55.5 Lymphocytes % (20.5 - 51.1 %) 30.8 Monocytes % (1.7 - 9.3 %) 9.0 Eosinophils % (0 - 5 %) 4.1 Basophils % (0.0 - 2.0 %) 0.6 Absolute Granulocytes (1.4 - 6.5 /CUMM) 3.9 Absolute Lymphocytes (1.2 - 3.4 /CUMM) 2.1 Absolute Monocytes (0.10 - 0.60 /CUMM) 0.6 Absolute Eosinophils (0.0 - 0.7 /CUMM) 0.3 Absolute Basophils (0.0 - 0.2 /CUMM) 0 PUBS MCHC (33.0 - 37.0 G/DL) 33.8 Cancelled Lyme titer negative Last 24 Hours of Aubrey Results: Blood cultures December 29 negative Assessment/Plan Impression: Second degree AV block, Mobitz type II, 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 The Lyme titer is typically positive in Lyme carditis as this usually occurs weeks to even months after the bite, at which point the titer is positive ; nevertheless, in the absence of any heart disease, feel that this is still the most likely diagnosis. If his heart block persists after several days of treatment, however, reevaluation for other causes will be necessary. His right hip pain may be secondary to osteoarthritis but, given his recent complaints of neck and back pain, could represent early Lyme disease. Suggestion: 1. Consider x-ray of the right hip 2. Continue Ceftriaxone
--- NOTE | 2016-12-30 14:59 | PN- Att Addend ---
Attending MD Review Statement Attending Statement Attending MD Statement: examined this patient, discuss w/resident/PA/GROUP LEADER, agreed w/resident/PA/GROUP LEADER, discussed with family, reviewed EMR data (avail), discussed w/ nursing, discussed w/case mgmt Attending Assessment/Plan: Laboratory Tests 12/30/16 0637: Anion Gap 12, Estimated GFR 59 L, BUN/Creatinine Ratio 13.3, CBC w Diff NO MAN DIFF REQ, RBC 4.26 L, MCV 91.2, MCH 30.9, RDW 14.1, MPV 8.2, Gran % 55.5, Lymphocytes % 30.8, Monocytes % 9.0, Eosinophils % 4.1, Basophils % 0.6, Absolute Granulocytes 3.9, Absolute Lymphocytes 2.1, Absolute Monocytes 0.6, Absolute Eosinophils 0.3, Absolute Basophils 0, PUBS MCHC 33.8 12/29/16 1547: Sodium Cancelled, Potassium Cancelled, Chloride Cancelled, Carbon Dioxide Cancelled, Anion Gap Cancelled, BUN Cancelled, Creatinine Cancelled, BUN/ Creatinine Ratio Cancelled, CBC w Diff Cancelled, WBC Cancelled, RBC Cancelled, Hgb Cancelled, Hct Cancelled, MCV Cancelled, MCH Cancelled, RDW Cancelled, Plt Count Cancelled, MPV Cancelled, PUBS MCHC Cancelled Vital Signs Date Time Temp Pulse Resp B/P B/P Pulse O2 O2 Flow FiO2 Mean Ox Delivery Rate 12/30 0811 97.5 34 20 120/70 96 Room Air 12/30 0800 Room Air 12/30 0113 98.0 54 20 126/60 97 Room Air 12/29 2117 98.0 40 20 130/64 96 Room Air 12/30 2007 96.8 32 18 130/70 96 Room Air 12/29 1714 36 18 109/54 94 Room Air 12/29 1658 98.3 35 18 120/58 97 Room Air 76 yr old male admitted with bradycardia and recent biopsy from scrotal skin tag showing tick remenants. Pt does do a lot of yardwork outside and gives h/o lot of deers passing by in his back yard. EKG showing 2nd degree type 2 block. Started on iv ceftriaxone per ID, cont with that. d/w health insurance specialist the care plan. d/w pt the care plan. Will repeat EKG in am and cont to monitor on telemetry.
[2016-12-30 15:30] VITALS: BP 124/62
--- NOTE | 2016-12-30 21:15 | RADIOLOGY REPORT ---
EXAMINATION: XR HIP, RIGHT CLINICAL INFORMATION: Right hip pain. COMPARISON: None. TECHNIQUE: AP and frog-leg lateral of the right hip. FINDINGS: Mild degenerative changes of the right hip joint. Small cortical densities adjacent to the acetabulum may reflect a small osteophyte or heterotopic ossification. Of note, there are coarse calcifications along the greater trochanter of the right hip, which calcifications at the insertion point of a tendon, in the setting of calcific tendinitis. IMPRESSION: No acute fracture or dislocation of the right hip. Mild degenerative changes of the right hip joint. 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
[2016-12-31 00:33] VITALS: BP 132/78
[2016-12-31 08:25] VITALS: BP 130/70
--- NOTE | 2016-12-31 08:27 | PN- Housestaff ---
Subjective Follow-up For: bradiacardia due to type II 2nd degree heart block , probably Lyme disease Complaints: no complaints Tele-Events Since Last Visit: Patient remain in persistent bradycardia with heart rate of 31 and had an episode of severe bradycardia with heart rate of 29 Subjective: Patient is seen and examined at the bedside. He denies of any active complain. But on further asking, he told that he feels very anxious due to the sickness of the patient in nearby room. He was very worried about his situation and future probability of getting the pacemaker. We discussed about the Lyme disease and its complication and told that he may need 21 days of antibiotics and despite of that, If he is not able to recover than possibility he may need pacemaker in future. We told that he is in a safe hands. Around 10 o'clock. He had an episode of severe pressure on the chest along with difficulty in the breathing. We did EKG, which did not showed any acute ST-T wave changes. Troponin was negative. We will continue telemetry monitoring. Discuss with the clinical scientist and according to them, it is very unusual to have Negative Lyme titer, with carditis. We will do confirmatory test with Western blot for Lyme. Baseline thyroid function test was also normal. Later, it was decided that we will continue to monitor patient on telemetry. We will continue to give antibiotic for total 21 days. If patient did not showed any improvement, then we will discuss for possible pacemaker in the future. Review of Systems Constitutional: Denies: no symptoms. Objective Last 24 Hrs of Vital Signs/I&O Vital Signs Date Time Temp Pulse Resp B/P B/P Pulse O2 O2 Flow FiO2 Mean Ox Delivery Rate 12/31 1530 97.5 34 16 118/78 97 Room Air 12/31 0825 97.6 42 18 130/70 98 Room Air 12/31 0033 97.9 62 18 132/78 94 Intake & Output 12/31 1600 12/31 0800 12/31 0000 Intake Total 600 200 620 Output Total Balance 600 200 620 Intake, IV 20 Intake, Oral 600 200 600 Physical Exam General Appearance: Alert, Oriented X3, Cooperative, No Acute Distress Cardiovascular: Normal S1, Normal S2 Lungs: Clear to Auscultation, Normal Air Movement Abdomen: Soft, No Tenderness Neurological: Normal Speech Extremities: No Clubbing, No Cyanosis, No Edema Current Medications: Current Medications Sig/Primo Start time Last Medication Dose Route Stop Time Status Admin Acetaminophen 650 MG .STK-MED ONE 12/31 0931 DC PO 12/31 0932 Acetaminophen 650 MG .STK-MED ONE 12/31 0007 DC PO 12/31 0008 Acetaminophen 650 MG Q6P PRN 12/29 1545 AC 12/31 PO 0931 Acetaminophen 1,000 MG Q6P PRN 12/29 1545 AC IV Aspirin 81 MG DAILY 12/30 1000 AC 12/31 PO 0927 Ceftriaxone Sodium 2,000 MG DAILY@1600 12/29 1600 AC 12/31 IV 1621 Enoxaparin Sodium 40 MG DAILY 12/30 1000 AC 12/31 SC 0927 Morphine Sulfate 1 MG Q4P PRN 12/29 1545 AC IV Last 24 Hrs of Lab/Aubrey Results Last 24 Hrs of Labs/Mics: Laboratory Tests 12/31/16 0945: Troponin I < 0.01, TSH 2.060, Free T4 1.28 Assessment/Plan Assessment: Patient is a 76-year-old man with significant past medical history of prostate cancer s/p surgery, radiotherapy, hypertension, sent by urologist to [place] [facility] as found to have bradycardia. Vital signs at the time of admission-temperature 98.3, pulse 47, respiratory rate 20, blood pressure 124/72, SPO2 96% on room air Pertinent labs - hemoglobin 13.1, Assessment and plan - Patient presented with the history of episodes of fatigue, generalized weakness and found to have fragments of tick, in skin tags. It seems that they are related. Possible bradycardia secondary to tick bite. Although he denies of any episodes of skin rashes, joint pain. Lyme titer was low and negative. We will do confirmatory test -Western blot for Lyme. First-degree heart block secondary to tick - * Lyme titer -0.40, negative, we willrepeat it in 2 weeks. * Inj ceftriaxone 2 grams IV OD followed by tablet doxycycline 100 mgs twice a day for 2-3 weeks. * EKG still showes - II degree type 2 heart block, and VA intervel -0.268. * We will repeat EKG daily * We'll keep atropine/pacer pads at the bedside. * We will follow ID recommendations * We will follow cardiology rcms * Vitals every shift Hypertension * We will hold amlodipine for a while. 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 Focal calcifications along the greater trochanter of the right hip, * We will give pain medication according to pain score Diet-heart healthy diet DVT prophylaxis-ALP/heparin CODE STATUS - Full Code Problem List: 1. Lyme carditis 2. Hypertension 3. Bradycardia Pain Ratin Pain Location: right hip Pain Goal: Remain pain free Pain Plan: mild to moderate Tomorrow's Labs & Rationales: EKG - f/u DVT/Prophylaxis: mechanical, pharmacological
--- NOTE | 2016-12-31 11:38 | PN- Cardiology ---
Subjective Subjective: Feels well this morning. No fatigue or dizziness. He did have some transient mild dyspnea which resolved quickly and he thinks it was because he was a little anxious. Objective Vital Signs and I&Os Vital Signs Date Time Temp Pulse Resp B/P B/P Pulse O2 O2 Flow FiO2 Mean Ox Delivery Rate 12/31 0825 97.6 42 18 130/70 98 Room Air 12/31 0033 97.9 62 18 132/78 94 12/30 1530 97.5 49 16 124/62 96 Room Air Intake & Output 12/31 1600 12/31 0800 12/31 0000 12/30 1600 12/30 0800 12/30 0000 Intake Total 200 620 600 400 Output Total Balance 200 620 600 400 Intake, IV 20 Intake, Oral 200 600 600 400 Patient 220 lb Weight Weight Reported by Patient Measurement Method Physical Exam: General: no apparent distress. Alert. Eyes: No obvious scleral icterus. HEENT: No jugular venous distention or abnormal jugular venous pulsations. Cardiovascular: Normal intensity S1/S2. Regular bradycardia Respiratory: Lungs clear to auscultation bilaterally. Abdomen: Soft, nontender with no guarding or rebound tenderness. Musculoskeletal: No clubbing or cyanosis noted, no edema Skin: No obvious rashes or ulcerations. Neurologic: No gross focal deficits noted. Current Medications: Current Medications Sig/Primo Start time Last Medication Dose Route Stop Time Status Admin Acetaminophen 650 MG .STK-MED ONE 12/31 0007 DC PO 12/31 0008 Acetaminophen 650 MG .STK-MED ONE 12/30 1419 DC PO 12/30 1420 Acetaminophen 650 MG Q6P PRN 12/29 1545 AC 12/31 PO 0931 Acetaminophen 1,000 MG Q6P PRN 12/29 1545 AC IV Aspirin 81 MG DAILY 12/30 1000 AC 12/31 PO 0927 Ceftriaxone Sodium 2,000 MG DAILY@1600 12/29 1600 AC 12/30 IV 1645 Enoxaparin Sodium 40 MG DAILY 12/30 1000 AC 12/31 SC 0927 Morphine Sulfate 1 MG Q4P PRN 12/29 1545 AC IV Patient Medication 1 ED .STK-MED ONE 12/30 1409 DC Teaching ED 12/30 1410 Results Last 48 Hrs of Labs/Mics: Laboratory Tests 12/31/16 0945: Troponin I < 0.01, TSH 2.060, Free T4 1.28 12/30/16 0637: Anion Gap 12, Estimated GFR 59 L, BUN/Creatinine Ratio 13.3, CBC w Diff NO MAN DIFF REQ, RBC 4.26 L, MCV 91.2, MCH 30.9, RDW 14.1, MPV 8.2, Gran % 55.5, Lymphocytes % 30.8, Monocytes % 9.0, Eosinophils % 4.1, Basophils % 0.6, Absolute Granulocytes 3.9, Absolute Lymphocytes 2.1, Absolute Monocytes 0.6, Absolute Eosinophils 0.3, Absolute Basophils 0, PUBS MCHC 33.8 12/30/16 0600: Lyme Ab (Western Blot) Pending, Lyme IgG 18 kDa Band Pending, Lyme IgG 23 kDa Band Pending, Lyme IgG 28 kDa Band Pending, Lyme IgG 30 kDa Band Pending, Lyme IgG 39 kDa Band Pending, Lyme IgG 41 kDa Band Pending, Lyme IgG 45 kDa Band Pending, Lyme IgG 58 kDa Band Pending, Lyme IgG 66 kDa Band Pending, Lyme IgG 93 kDa Band Pending, Lyme IgM (Western Blot) Pending, Lyme IgM 23 kDa Band Pending, Lyme IgM 39 kDa Band Pending, Lyme IgM 41 kDa Band Pending 12/29/16 1547: Sodium Cancelled, Potassium Cancelled, Chloride Cancelled, Carbon Dioxide Cancelled, Anion Gap Cancelled, BUN Cancelled, Creatinine Cancelled, BUN/ Creatinine Ratio Cancelled, CBC w Diff Cancelled, WBC Cancelled, RBC Cancelled, Hgb Cancelled, Hct Cancelled, MCV Cancelled, MCH Cancelled, RDW Cancelled, Plt Count Cancelled, MPV Cancelled, PUBS MCHC Cancelled 12/29/16 1225: Anion Gap 12, Estimated GFR > 60, BUN/Creatinine Ratio 14.5, Glucose 97, Calcium 9.8, Total Bilirubin 1.0, AST 35, ALT 54, Alkaline Phosphatase 105, Troponin I < 0.01, Total Protein 7.8, Albumin 4.4, Globulin 3.4, Albumin/Globulin Ratio 1.3, PT 11.6, INR 1.11, APTT 34, CBC w Diff NO MAN DIFF REQ, RBC 4.25 L, MCV 90.9, MCH 30.8, RDW 14.0, MPV 7.8, Gran % 61.7, Lymphocytes % 24.4, Monocytes % 9.6 H , Eosinophils % 3.6, Basophils % 0.7, Absolute Granulocytes 4.1, Absolute Lymphocytes 1.6, Absolute Monocytes 0.6, Absolute Eosinophils 0.2, Absolute Basophils 0, PUBS MCHC 33.8, Lyme Disease Antibody 0.40 Recent Imaging Studies: Telemetry tracings were personally reviewed and shows sinus rhythm and sinus bradycardia with periods of 2:1 heart block Hip xray: IMPRESSION: No acute fracture or dislocation of the right hip. Mild degenerative changes of the right hip joint. 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 Assessment/Plan Assessment/Plan 1. Sinus bradycardia with second-degree AV block. He was noted to have remnants of a tic on biopsy of a scrotal lesion. Lyme titer negative. 2. Essential hypertension 3. Hyperlipidemia 4. History of prostate cancer 5. Mild aortic insufficiency and mitral regurgitation by history Still with sinus bradycardia on telemetry with intermittent 2:1 AV block; some periods appear consistent with possible Mobitz II. No obvious symptoms from the bradycardia and he remains hemodynamically stable. No indication for urgent temporary pacemaker at this time. Interestingly his Lyme titer is negative which is unusual for a patient with Lyme carditis. I did discuss with Dr. Vila. There is the possibility of a false negative and he will continue on antibiotic treatment for possible Lyme. It is possible that his conduction disease is incidentally detected as my review of an EKG from 2015 did show some baseline conduction disease. I did request thyroid functions be added on which appear grossly normal. If the heart block were due to Lyme disease would expect recovery with an antibiotic course. Continue the patient on telemetry for now. Echocardiogram is pending. If no improvement after completion of an antibiotic course I did discuss the possibility of a permanent pacemaker in the future with the patient based on his clinical status and additional cardiac testing. It is unlikely he will require pacemaker placement prior to discharge if no worsening of his clinical status. Kade Fitzgerald MD [facility] Continue telemetry? Yes
--- NOTE | 2016-12-31 11:46 | PN- Infect Dx ---
Subjective Subjective: Afebrile. He noted some chest pressure and shortness of breath this morning, but currently feels improved. Objective Last 24 Hrs of Vital Signs/I&O Vital Signs Date Time Temp Pulse Resp B/P B/P Pulse O2 O2 Flow FiO2 Mean Ox Delivery Rate 12/31 0825 97.6 42 18 130/70 98 Room Air 12/31 0033 97.9 62 18 132/78 94 12/30 1530 97.5 49 16 124/62 96 Room Air Intake & Output 12/31 1600 12/31 0800 12/31 0000 Intake Total 200 620 Output Total Balance 200 620 Intake, IV 20 Intake, Oral 200 600 Physical Exam Other Physical Findings: He appears comfortable in no acute distress Lungs are clear Heart regular rhythm with a 2/6 systolic ejection murmur Extremities trace edema both lower extremities Results Last 24 Hours of Lab Results: Laboratory Tests 12/31 0945 Chemistry Troponin I (<0.11 ng/ml) < 0.01 TSH (0.270 - 4.200 uIU/mL) 2.060 Free T4 (0.78 - 2.44 ng/dL) 1.28 Last 24 Hours of Aubrey Results: Blood cultures 2 December 29 negative Recent Imaging Studies: X-ray of the right hip December 30 no acute fracture or dislocation, with mild degenerative changes of the right hip joint Assessment/Plan Impression: Sinus bradycardia with second degree AV block, Mobitz type II, 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 Have requested the lab to do a Western blot, though the negative RABIA makes Lyme less likely and suggests that he may have some underlying conduction disease, particularly given the review of his previous EKG per Cardiology. His symptoms of chest pressure and shortness of breath this morning are of some concern and he will need to continue to be monitored. He remains on Ceftriaxone, Day 2 of empiric treatment for Lyme, and this can be continued at this time. Suggestion: 1. Await Lyme Western blot 2. Continue Ceftriaxone
[2016-12-31 15:30] VITALS: BP 118/78
--- NOTE | 2016-12-31 16:12 | ECHOCARDIOGRAM REPORT ---
ANASTACIA RECIO Age: 76 : 1940 Gender: M Exam Date: 12/31/2016 11:10 Exam Location: 1 [address] Ht (in): 70 Wt (lb): 220 BSA: 2.25 BP: 132 / 78 Ordering Physician: EZRA THOMPSON M Referring Physician: EZRA THOMPSON MD Technologist: Lior Hager [facility] Room Number: [id number] Indications: LIGHTHEADEDNESS Rhythm: Technical Quality: Fair FINDINGS Left Ventricle Normal global left ventricular size, wall thickness, systolic function with no obvious regional wall motion abnormalities. Left ventricular ejection fraction is estimated at > 55 %. Right Ventricle Normal right ventricular size and function. Right Atrium Normal right atrial size. Left Atrium Normal left atrial size. Mitral Valve Structurally normal mitral valve. No mitral stenosis. Mild mitral regurgitation. Aortic Valve Trileaflet aortic valve. Mild aortic stenosis (estimated valve area 1.8 cm2 with mean gradient 14 mmHg). Trace to mild aortic regurgitation. Tricuspid Valve Structurally normal tricuspid valve. Mild tricuspid regurgitation. Unable to estimate the right ventricular systolic pressure. Pulmonic Valve Pulmonic valve not well visualized, grossly normal. Pericardium No pericardial effusion. Great Vessels Normal size aortic root. CONCLUSIONS Normal global left ventricular size, wall thickness, systolic function with no obvious regional wall motion abnormalities. Left ventricular ejection fraction is estimated at > 55 %. Normal right ventricular size and function. Mild aortic stenosis (estimated valve area 1.8 cm2 with mean gradient 14 mmHg). No pericardial effusion. Madi Fitzgerald M.D. (Electronically Signed) Final Date: 31 December 2016 16:12 MEASUREMENTS (Male / Female) Normal Values 2D ECHO LV Diastolic Diameter PLAX 5.7 cm 4.2 - 5.9 / 3.9 - 5.3 cm LV Systolic Diameter PLAX 3.6 cm 2.1 - 4.0 cm LV Fractional Shortening PLAX 36.8 % 25 - 46 % LV Ejection Fraction 2D Teich 66.0 % IVS Diastolic Thickness 0.7 cm LVPW Diastolic Thickness 0.9 cm LV Relative Wall Thickness 0.3 RV Internal Dim ED PLAX 3.2 cm 1.9 - 3.8 cm LVOT Diameter 2.2 cm Aortic Root Diameter 3.1 cm LA Systolic Diameter LX 3.7 cm 3.0 - 4.0 / 2.7 - 3.8 cm Ascending Aorta Diameter 3.0 cm DOPPLER AV Peak Velocity 274.0 cm/s AV Peak Gradient 30.0 mmHg AV Mean Velocity 174.0 cm/s AV Mean Gradient 14.0 mmHg AV Velocity Time Integral 70.5 cm AI Deceleration [place] 107.0 cm/s AI Peak Velocity 383.0 cm/s AI Pressure Half Time 1048.0 ms AI Peak Gradient 58.7 mmHg LVOT Peak Velocity 133.0 cm/s LVOT Peak Gradient 7.1 mmHg LVOT Mean Velocity 79.2 cm/s LVOT Mean Gradient 3.0 mmHg LVOT Velocity Time Integral 31.7 cm LVOT Stroke Volume 120.5 cm AV Area Cont Eq vti 1.7 cm AV Area Cont Eq pk 1.8 cm MV Peak Velocity 97.9 cm/s MV Peak Gradient 3.8 mmHg MV Mean Velocity 63.3 cm/s MV Mean Gradient 2.0 mmHg Mitral E Point Velocity 71.6 cm/s Mitral A Point Velocity 80.9 cm/s Mitral E to A Ratio 0.9 MV PHT Velocity 90.9 cm/s MV Deceleration [place] 362.0 cm/s MV Pressure Half Time 75.3 ms MV Area PHT 2.9 cm MV Deceleration Time 208.0 ms MR Peak Velocity 471.0 cm/s MR Peak Gradient 88.7 mmHg TR Peak Velocity 312.0 cm/s TR Peak Gradient 38.9 mmHg Right Atrial Pressure 5.0 mmHg Pulmonary Artery Systolic Pressu 43.9 mmHg Right Ventricular Systolic Press 43.9 mmHg PV Peak Velocity 159.0 cm/s PV Peak Gradient 10.1 mmHg PV Mean Velocity 94.6 cm/s PV Mean Gradient 4.0 mmHg PV Velocity Time Integral 35.2 cm LV E' Lateral Velocity 10.3 cm/s Mitral E to LV E' Lateral Ratio 7.0 LV E' Septal Velocity 6.8 cm/s Mitral E to LV E' Septal Ratio 10.5
--- NOTE | 2016-12-31 16:23 | PN- Att Addend ---
Attending MD Review Statement Attending Statement Attending MD Statement: examined this patient, discuss w/resident/PA/ESTIMATOR LUMBER, agreed w/resident/PA/ESTIMATOR LUMBER, discussed with family, reviewed EMR data (avail), discussed w/ nursing, discussed w/case mgmt Attending Assessment/Plan: Laboratory Tests 12/31/16 0945: Troponin I < 0.01, TSH 2.060, Free T4 1.28 Vital Signs Date Time Temp Pulse Resp B/P B/P Pulse O2 O2 Flow FiO2 Mean Ox Delivery Rate 12/31 0825 97.6 42 18 130/70 98 Room Air 12/31 0033 97.9 62 18 132/78 94 76 yr old male admitted with bradycardia and recent biopsy from scrotal skin tag showing tick remenants. Pt does do a lot of yardwork outside and gives h/o lot of deers passing by in his back yard. EKG showing 2:1 block. Started on iv ceftriaxone per ID, cont with that. d/w charge master analyst the care plan. d/w pt the care plan. Will repeat EKG in am and cont to monitor on telemetry. Lyme titer negative but await confirmatory test.
[2017-01-01 00:21] VITALS: BP 130/62
--- NOTE | 2017-01-01 08:17 | PN- Housestaff ---
Subjective Follow-up For: bradycardia probably secondary to lyme or SSS Complaints: no complaints Tele-Events Since Last Visit: episodes of NSR in between bradycardia Subjective: patient is seen and examined at the bed side. He denies for any active complains. Review of Systems Constitutional: Denies: no symptoms. Objective Last 24 Hrs of Vital Signs/I&O Vital Signs Date Time Temp Pulse Resp B/P B/P Pulse O2 O2 Flow FiO2 Mean Ox Delivery Rate 01/01 0021 97.6 33 16 130/62 95 12/31 1530 97.5 34 16 118/78 97 Room Air 12/31 0825 97.6 42 18 130/70 98 Room Air Intake & Output 01/01 1600 01/01 0800 01/01 0000 Intake Total 480 600 Output Total 650 Balance -170 600 Intake, Oral 480 600 Output, Urine 650 Physical Exam General Appearance: Alert, Oriented X3, Cooperative, No Acute Distress Cardiovascular: Normal S1, Normal S2 Lungs: Clear to Auscultation, Normal Air Movement Vascular: Normal Pulses, Pulses Symmetrical Current Medications: Current Medications Sig/Primo Start time Last Medication Dose Route Stop Time Status Admin Acetaminophen 650 MG .STK-MED ONE 12/31 0931 DC PO 12/31 0932 Acetaminophen 650 MG Q6P PRN 12/29 1545 AC 12/31 PO 0931 Acetaminophen 1,000 MG Q6P PRN 12/29 1545 AC IV Aspirin 81 MG DAILY 12/30 1000 AC 01/01 PO 0809 Ceftriaxone Sodium 2,000 MG DAILY@1600 12/29 1600 AC 12/31 IV 1621 Enoxaparin Sodium 40 MG DAILY 12/30 1000 AC 01/01 SC 0808 Morphine Sulfate 1 MG Q4P PRN 12/29 1545 AC IV Last 24 Hrs of Lab/Aubrey Results Last 24 Hrs of Labs/Mics: Laboratory Tests 12/31/16 0945: Troponin I < 0.01, TSH 2.060, Free T4 1.28 Assessment/Plan Assessment: Patient is a 76-year-old man with significant past medical history of prostate cancer s/p surgery, radiotherapy, hypertension, sent by urologist to [place] ED as found to have bradycardia. Vital signs at the time of admission-temperature 98.3, pulse 47, respiratory rate 20, blood pressure 124/72, SPO2 96% on room air Pertinent labs - hemoglobin 13.1, Assessment and plan - Discharged today First-degree heart block secondary to tick - * Lyme titer -0.40, negative, we will repeat it in 2 weeks. * We'll continue tablet doxycycline 100 mgs twice a day for a total 14 days * Advised to follow-up with cafeteria aide after completion of antibiotic course or if symptoms get worse. Hypertension * We will hold amlodipine for a while. 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 Focal calcifications along the greater trochanter of the right hip, * Advised to use Tylenol as needed Problem List: 1. Lyme carditis 2. Hypertension 3. Bradycardia Pain Ratin Pain Location: right hip Pain Goal: Remain pain free Pain Plan: tylenol prn Tomorrow's Labs & Rationales: EKG for f/u DVT/Prophylaxis: mechanical, pharmacological 3. Bradycardia Pain Ratin Pain Location: right hip Pain Goal: Remain pain free Pain Plan: tylenol prn Tomorrow's Labs & Rationales: EKG for f/u DVT/Prophylaxis: mechanical, pharmacological
[2017-01-01 08:24] VITALS: BP 140/70
--- NOTE | 2017-01-01 08:45 | Patient Discharge Instructions ---
Discharge Instructions General Discharge Information You were seen/treated for: Bradycardia, means low heart rate possibly due to Lyme disease. 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 Please follow up with your PCP with in a week of discharge. We are advising you to avoid driving, avoid exersion, and if started having syncopal attacks and come to ED or call PCP. Diet Recommended Diet: Heart Healthy Activity Full Activity/No Limits: No (as tolerated) Acute Coronary Syndrome Inclusion Criteria At DC or during hospital stay patient has or had the following: ACS DIAGNOSIS No Discharge Core Measures Meds if any: Prescribed or Continued at Discharge Meds if any: NOT Prescribed or Continued at Discharge Congestive Heart Failure Inclusion Criteria At DC or during hospital stay patient has or had the following: CHF DIAGNOSIS No Discharge Core Measures Meds if any: Prescribed or Continued at Discharge Meds if any: NOT Prescribed or Continued at Discharge Cerebrovascular accident Inclusion Criteria At DC or during hospital stay patient has or had the following: CVA/TIA Diagnosis No Discharge Core Measures Meds if any: Prescribed or Continued at Discharge Meds if any: NOT Prescribed or Continued at Discharge Venous thromboembolism Inclusion Criteria VTE Diagnosis No VTE Type NONE VTE Confirmed by (Test) NONE Discharge Core Measures - Per Current guidelines, there needs to be overlap - treatment for the first 5 days of Warfarin therapy. - If discharged on Warfarin prior to 5 days of - overlap therapy, the patient will need to be - assessed for post discharge needs including - *Post discharge parental anticoagulation - *Warfarin and/or parental anticoagulation education - *Follow up date to check INR post discharge At least 5 days overlap therapy as Inpatient No Meds if any: Prescribed or Continued at Discharge Warfarin No Note: Overlap Therapy is Warfarin and Anticoagulant Meds if any: NOT Prescribed or Continued at Discharge
[2017-01-01] MEDS ORDERED: DOXYCYCLINE MO100 M2 PO ×3 (08:46→11:55)
--- NOTE | 2017-01-01 09:39 | PN- Cardiology ---
Subjective Subjective: Telemetry personally reviewed by me. There appears to be a longer duration of time that this patient has a heart rate of 70-80 as opposed to when he first came in. In other words shorter duration of 2:1 block. Patient claims to feel well. He has absolutely no symptoms of presyncope or syncope. Exam bleeding well. He also tells me he has walked the [employer] in the past 2 weeks to 3 times a week and has no symptoms of chest pain unusual shortness of breath syncope or presyncope. His claims that during sleep he tends to gasp a little bit and it might be sleep apnea. He also has some underlying anxiety and has to take a deep breath at times and occasionally after yard work feels fatigued. He was concerned that this might be related to his bradycardia but I told him that in the absence of syncope or presyncope and but preserved walking on the [employer] that I'm encouraged that his arrhythmia is not causing any hemodynamic problem Objective Vital Signs and I&Os Vital Signs Date Time Temp Pulse Resp B/P B/P Pulse O2 O2 Flow FiO2 Mean Ox Delivery Rate 01/01 0824 97.3 40 18 140/70 96 Room Air 01/01 0021 97.6 33 16 130/62 95 12/31 1530 97.5 34 16 118/78 97 Room Air Intake & Output 01/01 1600 01/01 0800 01/01 0000 12/31 1600 12/31 0800 12/31 0000 Intake Total 480 600 600 200 620 Output Total 650 Balance -170 600 600 200 620 Intake, IV 20 Intake, Oral 480 600 600 200 600 Output, Urine 650 Physical Exam: On general exam patient comfortable 6 sitting up in bed communicating talking. in the room. Head normocephalic atraumatic Eyes sclera anicteric conjunctiva showed no pallor extraocular muscles were normal sclera was anicteric Neck no jugular venous distention no thyroid masses no palpable nodes Chest lungs were clear bilaterally Heart regular rhythm with a 2/6 systolic murmur Abdomen soft no organomegaly nontender bowel sounds normal Extremities no clubbing cyanosis or pedal edema Neurological no gross sensory or motor deficit Current Medications: Current Medications Sig/Primo Start time Last Medication Dose Route Stop Time Status Admin Acetaminophen 650 MG Q6P PRN 12/29 1545 AC 12/31 PO 0931 Acetaminophen 1,000 MG Q6P PRN 12/29 1545 AC IV Aspirin 81 MG DAILY 12/30 1000 AC 01/01 PO 0809 Ceftriaxone Sodium 2,000 MG DAILY@1600 12/29 1600 AC 12/31 IV 1621 Enoxaparin Sodium 40 MG DAILY 12/30 1000 AC 01/01 SC 0808 Morphine Sulfate 1 MG Q4P PRN 12/29 1545 AC IV Polyethylene Glycol 17 GM DAILY 01/01 0830 AC PO Results Last 48 Hrs of Labs/Mics: Laboratory Tests 12/31/16 0945: Troponin I < 0.01, TSH 2.060, Free T4 1.28 Recent Imaging Studies: Echocardiogram personally reviewed by me Normal global left ventricular size, wall thickness, systolic function with no obvious regional wall motion abnormalities. Left ventricular ejection fraction is estimated at > 55 %. Normal right ventricular size and function. Mild aortic stenosis (estimated valve area 1.8 cm2 with mean gradient 14 mmHg). No pericardial effusion. Assessment/Plan Assessment/Plan In summary this 72 for old gentleman has the following problems 1. Sinus bradycardia with second-degree AV block. He was noted to have remnants of a tic on biopsy of a scrotal lesion. Lyme titer negative. 2. Essential hypertension 3. Hyperlipidemia 4. History of prostate cancer 5. Mild aortic stenosis with normal left ventricular systolic function by echocardiogram They may be some signs that his duration of second-degree block overall could be decreasing. Heart rates in the 70-80 with sinus conduction most of the morning. This could indicate some improvement with treatment for Lyme infection although it is still a little early to to be confirmatory. Since he has been hemodynamically stable I would essentially advocate a full course for treatment for Lyme disease. In 2 weeks a 24-hour Holter monitor recording will be obtained. Should he continue to stay in 2-1 block with ventricular rates of 30 a pacemaker could be suggested at that time. In the interim I've told him should he be discharged today at he should not drive, continue to stay home or go for walks but reported there is any presyncope or syncope. Certainly no climbing heights or doing any chores on ladders. Continue telemetry? Yes
--- NOTE | 2017-01-01 10:16 | Discharge Summary ---
See Addendum Visit Information Visit Dates Admission Date: 12/29/16 Discharge Date: 01/01/2017 Hospital Course Course Attending Physician: JOSE DANIEL CORTEZ,CHARY Chao Primary Care Physician: BEA CORTEZ,[facility] Course: Patient is a 76-year-old man with significant past medical history of prostate cancer s/p surgery/CT/RT, hypertension, sent by urologist to [place] ED as found to have bradycardia. Vital signs at the time of admission-temperature 98.3, pulse 37, respiratory rate 20, blood pressure 161/70, SPO2 96% on room air EKG -Mobitz type II, 2:1 block. Bradycardia under evaluation, possibly secondary to Lyme's disease Patient presented with history of intermittent episodes of fatigue, found to be in bradycardia at Dr. Morales's office and the right scrotal skin biopsy taken before showed fragments of tick.He was sent to [place] ED. EKG in emergency department showed 2:1 block.We admitted the patient into telemetry floor. We sent Lyme titer and started patient on IV ceftriaxone 2 gram once a day. Follow- up Lyme titer was 0.40, thyroid panel was normal, Western blot for lyme is still pending. We took cardiology consult and ID consult. They advised to continue treatment. On the day of discharge, overnight telemetry monitoring was showing episodes of normal sinus rhythm in between. We discharged him on tablet doxycycline 100 milligrams twice a day for total 24 days.We advised him to follow-up with certified drug counselor after completing the course of antibiotics. We advised if he have any episodes of syncope or presyncope, return to ED/call 911.We also advised him to avoid any exertion, and driving. We told him again after 2 weeks if bradycardia persists, then he may need Holter monitoring/ permanent pacemaker. Hypertension We stopped amlodipine initially. At the time of discharge we didnt restart it as blood pressure was in normal range. We advised to follow-up with PCP and to consider DELANEY inhibitor/ARB if needed, and avoiding beta candy and calcium channel candy, which decrease heart rate. Right hip pain due to degenerative joint disease Patient was complaining of intermittent pain in the right hip. X-ray of the hip showed mild degenerative changes,focal calcifications along the greater trochanter. We advised to use Tylenol as needed and follow-up with PCP for further management. Allergies: Coded Allergies: No Known Allergies (12/29/16) Disposition Summary Disposition Principal Diagnosis: Bradycardia under evaluation, possibly secondary to Lyme's disease Additional Diagnosis: Hypertension Right hip-degenerative joint disease Discharge Disposition: home or self care Discharge Instructions General Discharge Information Code Status: Full Code Patient's Diet: Heart healthy Patient's Activity: As tolerated, avoid exertion and driving Follow-Up Instructions/Appts: Advised to follow up with certified drug counselor after completing course of antibiotics or within 2 weeks. Advised to follow up with your PCP with in a week of discharge. Advised to avoid driving and exersion, and if started having syncopal attacks than come to ED or call 911. Medications at Discharge Discharge Medications: Stop taking the following medications: Amlodipine Besylate (Amlodipine Besylate) 5 MG TABLET ORAL DAILY Qty = 30 [CHOLESTAFF] 900 MG TAB ORAL DAILY Continue taking these medications: Aspirin (Aspirin*) 81 MG TAB.CHEW 1 Tablet ORAL DAILY Ubidecarenone (Co Q-10) 100 MG CAPSULE 1 Capsule ORAL Every night Cholecalciferol (Vitamin D3) (Vitamin D3) 5,000 UNIT TABLET 1 Tablet ORAL DAILY Doxycycline Monohydrate (Doxycycline Monohydrate) 100 MG CAPSULE 1 Capsule ORAL TWICE DAILY Qty = 48 This prescription has been renewed Start taking the following new medications: Doxycycline Monohydrate (Doxycycline Monohydrate) 100 MG CAPSULE 1 Capsule ORAL TWICE DAILY Qty = 42 No Refills Copies To: LOYDA CORTEZ,LEONARDO Dawson; MARLENY CORTEZ,[facility]; [facility]; LEXIS CORTEZ,DUNCAN Tang Attending MD Review Statement Documenting Attending: JOSE DANIEL CORTEZ,CHARY Chao
--- NOTE | 2017-01-01 11:12 | PN- Infect Dx ---
Subjective Subjective: Afebrile without complaints. He has had no further chest pressure or shortness of breath. Objective Last 24 Hrs of Vital Signs/I&O Vital Signs Date Time Temp Pulse Resp B/P B/P Pulse O2 O2 Flow FiO2 Mean Ox Delivery Rate 01/01 0824 97.3 40 18 140/70 96 Room Air 01/01 0021 97.6 33 16 130/62 95 12/31 1530 97.5 34 16 118/78 97 Room Air Intake & Output 01/01 1600 01/01 0800 01/01 0000 Intake Total 480 600 Output Total 650 Balance -170 600 Intake, Oral 480 600 Output, Urine 650 Physical Exam Other Physical Findings: He appears comfortable in no acute distress Lungs are clear Heart regular rhythm with a 2/6 systolic ejection murmur Extremities no cyanosis, clubbing or edema Results Last 24 Hours of Lab Results: No labs today Last 24 Hours of Aubrey Results: Blood cultures December 29 negative Assessment/Plan Impression: Sinus bradycardia with second degree AV block persists though, per Cardiology, there are some signs that the duration of the second degree block is decreasing. He remains on Ceftriaxone now Day 3 of treatment for possible Lyme carditis, though the negative Lyme titer makes this less likely. Have requested the lab to do a Western blot, though do not expect this to be positive. At this point he can continue on treatment for possible Lyme carditis with close follow-up by Cardiology planned as an outpatient. Suggestion: 1. Follow-up Lyme Western blot 2. Could repeat Lyme titer in approximately 2 weeks 3. Discontinue Ceftriaxone and begin Doxycycline 100 mg po every 12 hours to complete a 14 day course of treatment
--- NOTE | 2017-01-01 12:00 | NUR ---
PT DISCHARED. PT MEDICATION DOXYCYCLINE CHANGED IN CMAR.
--- NOTE | 2017-01-01 16:50 | PN- Att Addend ---
Attending MD Review Statement Attending Statement Attending MD Statement: examined this patient, discuss w/resident/PA/TECHNOLOGY MANAGER, agreed w/resident/PA/TECHNOLOGY MANAGER, reviewed EMR data (avail), discussed w/nursing, discussed w/ case mgmt Attending Assessment/Plan: Pt being dced today. d/w pt and his the care plan. dced on po doxycycline . will f/u on western blot for lyme. see dc summary for more details.
== END 2017-01-01 12:05 | DRG 309 ==
LOC: ERH 12:04 → 1NO 14:55 → ERHI 14:55 → ENRESERV 19:21 → ENTRNSPT 20:44 → 1NO 21:06 → CMPTRNSPT 21:09 → 1NO 12-30 08:50 → ENPENDDIS 01-01 10:47 → 1NO 01-01 12:05
PROVIDERS: Emergency Medicine; Student in an Organized Health Care Education/Training Program; ADMIT Internal Medicine
DX: I44.1 Atrioventricular block, second degree (principal); A69.20 Lyme disease, unspecified; I35.0 Nonrheumatic aortic (valve) stenosis; I10 Essential (primary) hypertension; Z87.891 Personal history of nicotine dependence; M16.11 Unilateral primary osteoarthritis, right hip; E78.5 Hyperlipidemia, unspecified; F41.9 Anxiety disorder, unspecified
CPT/HCPCS: 1NP; 86317; 86618; 87798; 36415; 73502-RT; 82436; 87040; 93005; 93010; 93306; 96374; J0131; J0696; J1650; J3490

== ENCOUNTER 2017-02-03 02:39 | Inpatient (IN) | payer OTHER ==
[~2017-02-03] VITALS: Ht 177.8 cm; Wt 99.8 kg
[~2017-02-03 02:39] MED LIST: AMLODIPINE BESYL5 M1 PO; ASPIRIN81 M4 PO; CO Q-10100 MG PO; DOXYCYCLINE MO100 M2 PO; VITAMIN D35000 UNI1 PO; [UNRECOGNIZED DRUG - OTHER] PO
--- NOTE | 2017-02-03 14:11 | RADIOLOGY REPORT ---
EXAMINATION: CHEST 1 VIEW CLINICAL INFORMATION: Pacer placement. COMPARISON: 01/30/2017. TECHNIQUE: An AP view of the chest is provided. FINDINGS: The cardiac silhouette is within normal limits. Lung volumes are decreased. Pacer leads overlie the right atrium and right ventricle. The mediastinal and hilar contours are unremarkable. There are neither pleural effusions nor pneumothoraces. There are no consolidations. The osseous structures are unremarkable. IMPRESSION: Pacer leads in place. No consolidations. No discernible pneumothoraces.
--- NOTE | 2017-02-03 14:30 | RADIOLOGY REPORT ---
EXAMINATION:\H\ \N\XR CHEST/INTRAOPERATIVE FLUOROSCOPY CLINICAL INFORMATION: Double lead pacemaker insertion. COMPARISON: Chest x-ray dated 02/03/2017. TECHNIQUE/FINDINGS: Intraoperative fluoroscopy was provided for the insertion of a double lead pacemaker. 20 fluoroscopic spot films were obtained and are archived in PACS. These demonstrate sequential placement of a right atrial and right ventricular pacer lead. FLUOROSCOPY TIME: 17.9 minutes. IMPRESSION: Images obtained from pacemaker insertion. Please refer to operative notes.
--- NOTE | 2017-02-03 15:10 | Operative Report ---
Operative/Inv Procedure Report Surgery Date: 02/03/17 Name of Procedure: MRI compatible dual-chamber pacemaker Pre-Operative Diagnosis: First and second-degree heart block with symptomatic bradycardia Post-Operative Diagnosis: Same Estimated Blood Loss: scant Surgeon/Office Machine Servicer: SUYAPA CORTEZ,SHAHBAZ Coleman JR Anesthesia: local monitored anesthesi Operative/Procedure Note Note: After placement of monitoring lines the patient's left shoulder and upper chest were prepped and draped in a sterile fashion. 1% lidocaine was used local anesthetic. Incision was made in the deltopectoral groove and carried down to prepectoralis fascia. The cephalic vein was isolated and was found to be a good caliber vessel. Small venotomy was made and a guidewire was passed directly into the right atrium. A Medtronic pacemaker lead model #[id number] was then advanced into the pulmonary artery under fluoroscopic guidance. It was withdrawn into the right ventricular chamber and positioned at the apex. R waves were measured at 11.2 mV and the pacing threshold was at 0.3 V with a current of 0.2 mA and an impedance of 1105 ohms. Sheath dilator was then passed over the retained wire and a Medtronic lead model #[id number] was then advanced into the right atrial appendage P waves were measured at 8.9 mV. The pacing threshold was 0.3 V with a current of 0.5 mA and impedance of 687 ohms. The leads were tied to the cephalic vein which was occluded. They were then fixed the prepectoralis fascia with Ethibond sutures. Pacemaker pocket was fashioned above the fascia. The leads were then connected to a Medtronic MRI compatible dual-chamber pacemaker. The pacemaker pocket was irrigated with antibiotic irrigation. Hemostasis was achieved with electrocautery and with surgical clips. The pocket was closed with running Vicryl suture followed by running Vicryl subcuticular suture. It pressure dressing was applied. The patient tolerated the procedure well and was brought to the recovery room in stable condition. CC: LOYDA CORTEZ,LEONARDO Dawson
--- NOTE | 2017-02-03 16:30 | Admission Core Measures ---
Admission Meds I reviewed the following Meds: Current Medications Sig/Primo Start time Last Medication Dose Stop Time Status Admin Acetaminophen 650 MG Q6P PRN 02/03 1400 AC (Tylenol) Aspirin 81 MG DAILY 02/04 1000 AC (Aspirin) Cefazolin Sodium 2 GM IQ8 02/03 1600 AC (Kefzol) 02/04 0029 N/A 1 UNIT (No Carrier) Heparin Sodium 5,000 UNIT Q8 02/03 2200 AC (Porcine) Morphine Sulfate 4 MG Q2P PRN 02/03 1400 AC (Morphine) Ondansetron HCl 4 MG Q6P PRN 02/03 1400 AC (Zofran) Oxycodone/ 1 TAB Q4P PRN 02/03 1400 AC Acetaminophen (Percocet) Oxycodone/ 2 TAB Q4P PRN 02/03 1400 AC Acetaminophen (Percocet) Promethazine HCl 12.5 MG Q6P PRN 02/03 1400 AC (Phenergen) 02/10 1314 Sodium Chloride 1,000 ML Q13H 02/03 1400 AC 02/03 (Normal Saline 0.9%) 1440 Acute Coronary Syndrome Inclusion Criteria ACS Diagnosis No Inpatient Core Measures LDL Reminder: If No, please order W/I first 24hr of stay Congestive Heart Failure Inclusion Criteria CHF Diagnosis No Cerebrovascular accident Inclusion Criteria CVA/TIA Diagnosis No Inpatient Core Measures Bedside Swallow Eval Reminder: If BSE failed, place ST order Antithrombotic Reminder: Order Antithrombotic Medication by end of day 2 Antithrombotic Reminder: Document Reason Antithrombotic Not ordered by end of day 2 AFIB/Flutter Reminder: If Present, add to problem list AFIB/Flutter Reminder: Order Anticoag Medication for pts with AFIB/Flutter Atherosclerosis Reminder: If Present, add to problem list LDL Reminder: If No, please order W/I first 24hr of stay PT Order Reminder: If No, please order Venous thromboembolism Inpatient Core Measures VTE Risk Factors: Age > 40, [facility] prophylaxis d/t No contraindications No VTE Pharm Prophylaxis d/t No contraindications Inclusion Criteria - Per Current guidelines, there needs to be overlap - treatment for the first 5 days of Warfarin therapy. - Parenteral Anticoagulation (IV or SC) needs to be - given along with Warfarin therapy. VTE Diagnosis No VTE Type NONE VTE Confirmed by (Test) NONE Problem List As ranked by this Provider includes Assessment & Plan 1. Bradycardia HOME MEDS Home Med List Aspirin (Aspirin*) 81 MG TAB.CHEW 1 TAB PO DAILY HEART HEALTH (Reported)
--- NOTE | 2017-02-03 18:10 | PN- Thoracic Surgery ---
Subjective Subjective: Post op check: Patient reporting that his pain is adequately under control. No complaints of chest pain, shortness of breath and difficulty breathing. No nausea or vomitting. No dizziness or blurred vision. Objective Vital Signs and I&Os Intake & Output 02/03 1600 02/03 0800 02/03 0000 02/02 1600 02/02 0800 02/02 0000 Intake Total Output Total Balance Patient 220 lb 220 lb Weight Weight Reported by Patient Measurement Method Physical Exam: General: Alert and oriented x3, no acute distress Cardiac: RRR, s1s2, paced Pulm: CTA Abd: Obese, non-tender Extremities: Moves all extremities, distal sensation intact, Motor 5/5 in bilaterl upper extremities, bialteral calves soft and non-tender Surgical site: Left chest, dressing dry and intact, no evidence of hematoma Assessment/Plan Assessment/Plan This is a 76 year old male, pmh significant for bradycardia, underwent placement of a pacemaker today, doing well. -Diet: Advance as tolerated -Activity: OOB -Telemetry monitoring overnight -Percocet for pain as needed -Sub Q heparin for dvt ppx -Possible dc to home tomorrow -Will d/w Dr. Chavira Core Measures/Miscellaneous Venous Thromboembolism VTE Risk Factors: Age > 40, Surgery VTE Contraindications: No Contraindications VTE Diagnosis: No VTE Type: NONE VTE Confirmed by (Test): NONE Beta Rafael Is Beta Rafael a Home Med? No Antibiotics Is Patient on Antibiotics? Yes If Yes: prophylaxis
[2017-02-03 20:00] VITALS: BP 120/80
[2017-02-04 06:00] VITALS: BP 128/78
--- NOTE | 2017-02-04 08:24 | Patient Discharge Instructions ---
Discharge Instructions General Discharge Information You were seen/treated for: First and second-degree heart block with symptomatic bradycardia You had these procedures: Surgery Date: 02/03/17 Name of Procedure: MRI compatible dual-chamber pacemaker Watch for these problems: fever>101.3, dizziness, shortness of breath, chest pains, redness/swelling/ drainage No bath, but you may shower: Yes Other wound care: ok to shower tomorrow. keep incision clean & dry. Diet Continue normal diet: Yes Recommended Diet: Heart Healthy Activity Full Activity/No Limits: No Activity Self Limited: Yes Acute Coronary Syndrome Inclusion Criteria At DC or during hospital stay patient has or had the following: ACS DIAGNOSIS No Discharge Core Measures Meds if any: Prescribed or Continued at Discharge Meds if any: NOT Prescribed or Continued at Discharge Congestive Heart Failure Inclusion Criteria At DC or during hospital stay patient has or had the following: CHF DIAGNOSIS No Discharge Core Measures Meds if any: Prescribed or Continued at Discharge Meds if any: NOT Prescribed or Continued at Discharge Cerebrovascular accident Inclusion Criteria At DC or during hospital stay patient has or had the following: CVA/TIA Diagnosis No Discharge Core Measures Meds if any: Prescribed or Continued at Discharge Meds if any: NOT Prescribed or Continued at Discharge Venous thromboembolism Inclusion Criteria VTE Diagnosis No VTE Type NONE VTE Confirmed by (Test) NONE Discharge Core Measures - Per Current guidelines, there needs to be overlap - treatment for the first 5 days of Warfarin therapy. - If discharged on Warfarin prior to 5 days of - overlap therapy, the patient will need to be - assessed for post discharge needs including - *Post discharge parental anticoagulation - *Warfarin and/or parental anticoagulation education - *Follow up date to check INR post discharge At least 5 days overlap therapy as Inpatient No Meds if any: Prescribed or Continued at Discharge Note: Overlap Therapy is Warfarin and Anticoagulant Meds if any: NOT Prescribed or Continued at Discharge
[2017-02-04] MEDS ORDERED: PERCOCET 5-3251 EACH PO (08:25)
== END 2017-02-04 10:00 | DRG 244 ==
LOC: SDA 02:39 → ENRESERV 13:37 → 1NO 14:50 → ENPENDDIS 02-04 08:27 → 1NO 02-04 10:00
PROVIDERS: ADMIT Thoracic Surgery (Cardiothoracic Vascular Surgery)
PROC: 0JH606Z Insertion of Pacemaker, Dual Chamber into Chest Subcutaneous Tissue and Fascia, Open Approach (ICD-10-PCS; principal; 2017-02-03)
PROC: 02H63JZ Insertion of Pacemaker Lead into Right Atrium, Percutaneous Approach (ICD-10-PCS; 2017-02-03)
PROC: 02HK3JZ Insertion of Pacemaker Lead into Right Ventricle, Percutaneous Approach (ICD-10-PCS; 2017-02-03)
DX: I44.0 Atrioventricular block, first degree (principal); Z85.46 Personal history of malignant neoplasm of prostate; I44.1 Atrioventricular block, second degree; R00.1 Bradycardia, unspecified; Z92.3 Personal history of irradiation
CPT/HCPCS: 1NSP; 93005; 93010; C1785; C1898; J0690; J1644; J2405; J2550; J3490